=== PATIENT | male | born 1930 | race Caucasian/White ===

== ENCOUNTER 2016-07-17 08:56 | Inpatient (IN) | payer MEDICARE, BC ==
[~2016-07-17 08:56] MED LIST: DULC10SU2 PR; FAMC500T10 PO; LISI-542 PO; MILKSUS PO; MINO100T PO; POLYOPD OS; PRED10TA PO; PROS5TAB PO; RAPA8CAP PO; REGL5TAB2 PO; TYLE325T5 PO; VITMTA PO
[2016-07-17] MEDS: FINASTERIDE 5 MG TAB PO SCH (09:00)
[2016-07-17] MEDS: SENOKOT S TAB PO SCH ×2 (09:00→20:02)
[2016-07-17 09:37] LABS: BASO # 0.1 K/mm3 (0.0-0.2); EOS # 0.4 K/mm3 (0.0-0.50); EOS % 5.1 % (0.0-3.0); LARGE UNSTAINED CELL # 0.5 K/mm3 (0.0-0.4); LARGE UNSTAINED CELL % 5.6 % (0.0-4.0); LYMPH # 1.4 K/mm3 (1.5-4.5); LYMPH % 17.1 % (24.0-44.0); MEAN CORPUSCULAR HEMOGLOBIN 30.6 pg (27.0-33.0); MEAN CORPUSCULAR HGB CONC 33.2 g/dl (32.0-36.5); MEAN CORPUSCULAR VOLUME 92.2 fl (80.0-96.0); MONO # 0.8 K/mm3 (0.0-0.8); MONO % 10.1 % (0.0-5.0); PLATELET COUNT, AUTOMATED 269 k/mm3 (150-450); RED CELL DISTRIBUTION WIDTH 13.6 % (11.5-14.5); WHITE BLOOD COUNT 8.2 K/mm3 (4.0-10.0)
[2016-07-17 09:42] LABS: INR 1.09
[2016-07-17 09:43] LABS: ANION GAP 7 MEQ/L (8-16); BLOOD UREA NITROGEN 14 MG/DL (7-18); CALCIUM LEVEL 8.3 MG/DL (8.8-10.2); CARBON DIOXIDE LEVEL 30 MEQ/L (21-32); CHLORIDE LEVEL 105 MEQ/L (98-107); CREATININE FOR GFR 1.03 MG/DL (0.70-1.30); GLOMERULAR FILTRATION RATE > 60.0 (>35); GLUCOSE, FASTING 84 MG/DL (83-110); POTASSIUM SERUM 3.6 MEQ/L (3.5-5.1); SODIUM LEVEL 142 MEQ/L (136-145)
[2016-07-17] MEDS ORDERED: MORPHINE 4 MG/ML 1ML SYRINGE As Ordered ONE ×3 (09:50→11:34)
[2016-07-17] MEDS ORDERED: ONDANSETRON 4MG/2ML VIAL (J2405) As Ordered ONE (09:50)
--- NOTE | 2016-07-17 10:05 | REP ---
Chest one-view HISTORY: Infarction Comparison: 09/13 16 There is poor inspiratory effort. The lungs are clear. The heart is normal in size. The pulmonary vasculature is normal in appearance. Impression: No acute disease. Signed by Dc Enriquez MD 07/17/2016 09:58 A
--- NOTE | 2016-07-17 10:14 | REP ---
CT HEAD WITHOUT CONTRAST: HISTORY: Infarction. An acute intraparenchymal hematoma is present in the right temporal lobe and basal ganglia. The hematoma measures 5 cm in transverse x 3.7 cm in AP dimensions. A small amount of surrounding edema is present. There is mass effect with partial effacement of the overlying cortical sulci and body of the right lateral and third ventricles with minimal midline shift to the left. A small amount of intraventricular and subarachnoid hemorrhage are present. Areas of decreased attenuation are present in the periventricular white matter. This represents small vessel ischemic disease. The ventricular system and cortical sulci are dilated consistent with moderate volume loss. There is no extracerebral collection. The visualized sinuses are clear. IMPRESSION: 1. There is an acute intraparenchymal hematoma in the right temporal lobe and basal ganglia with mass effect and minimal midline shift to the left. 2. Small amount of intraventricular and subarachnoid hemorrhage. 3. Small vessel ischemic disease. 4. Moderate volume loss. The results were discussed with Dr. Harvey at 9:45 a.m. this date. Signed by Dc Enriquez MD 07/17/2016 10:16 A
[2016-07-17] MEDS ORDERED: LORazepam 1 MG TAB PO PRN (10:15)
[2016-07-17] MEDS ORDERED: FLEET ENEMA PR PRN (10:15)
[2016-07-17] MEDS ORDERED: ACETAMINOPHEN TAB 650MG DOSE (2X325MG) PO PRN (10:15)
[2016-07-17] MEDS ORDERED: MORPHINE 10MG/0.5ML ORAL CONCENTRATE SOLUTION U/D SL PRN (10:15)
[2016-07-17] MEDS ORDERED: SCOPOLAMINE 1.5 MG TRANSDERMAL TD PRN (10:15)
[2016-07-17] MEDS ORDERED: BISACODYL 10 MG SUPP PR PRN (10:15)
[2016-07-17] MEDS ORDERED: FLEEENE4 PR (10:19)
[2016-07-17] MEDS ORDERED: OMEP20CA3 PO (10:19)
[2016-07-17] MEDS ORDERED: POLY0.05 OS (10:19)
[2016-07-17] MEDS ORDERED: CETACRE4 TOP (10:19)
[2016-07-17] MEDS ORDERED: VALA500T PO (10:19)
[2016-07-17] MEDS ORDERED: PRED10TA PO (10:19)
[2016-07-17] MEDS ORDERED: ACET-654 PO (10:19)
[2016-07-17] MEDS ORDERED: MINO100C PO (10:19)
[2016-07-17] MEDS ORDERED: HYDR10T PO (10:19)
[2016-07-17] MEDS ORDERED: COLA100C PO (10:19)
--- NOTE | 2016-07-17 11:47 | EDDOCDS ---
Physician Documentation [facility] Name: Del Falcon Age: 86 yrs Sex: Male : 1930 Arrival Date: 07/17/2016 Time: 08:56 Bed 14 Private MD: Shaunna Santo E Disposition: 07/17/16 10:10 Hospitalization ordered by Abbey Juan for Inpatient Admission. Preliminary diagnosis is Intracerebral (nontraumatic) hemorrhage of - not . - Bed requested for 5 [place]. - Status is Inpatient Admission. hs1 - Condition is Stable. - Problem is new. - Symptoms are unchanged. Historical: - Home Meds: 1. minocycline miscellaneous 2. minocycline 100 mg Oral tab 1 tab daily 3. Cetaphil Moisturizing topical lotn twice a day 4. Atarax 10 mg Oral tab 10 mg four times a day 5. Prilosec 20 mg Oral cpDR 1 cap once daily 6. Rapaflo 8 mg oral cap 1 cap 7. finasteride 5 mg oral tab 1 tab once daily - PMHx: enlarged prostate; Hypertension; auto immune disease; Dementia; - PSHx: Cholecystectomy; Appendectomy; left knee operation; - Social history: Smoking status: unknown if patient ever smoked tobacco. No barriers to communication noted, Speaks appropriately for age. - Family history: Not pertinent. - : The pt / caregiver states he / she is not on anticoagulants. Home medication list is obtained from the facility SEP. - Exposure Risk Screening:: None identified. Vital Signs: 07/17 09:22 BP 245 / 162 (auto/); hs1 09:22 Pulse 60 MON; Pulse Ox 97% ; hs1 MDM: 09:02 ECG WITH READING ER PHYS+CARDIAG ordered. EDMS 09:04 Corporate Strategist/Pulse Ox/q 15 min VS ordered. sd1 09:04 Accucheck ordered. sd1 09:04 IV Saline Lock ordered. sd1 09:04 Rhythm Strip to chart ordered. sd1 09:04 Basic Metabolic Profile Ordered. EDMS 09:04 CBC with Diff Ordered. EDMS 09:04 Partial Thromboplastin Time Ordered. EDMS 09:04 Prothrombin Time Profile\E\INR Ordered. EDMS 09:04 Type & Screen Ordered. EDMS 09:05 CT Head Without Contrast Ordered. EDMS 09:05 Chest, 1 View Ordered. EDMS 09:42 morphine 4 mg IVP every 15 minutes; Document pain score/vitals after each dose (Hold if sd1 SBP < 90mmHg) x2 ordered. 09:42 Ondansetron 4 mg IVP once ordered. sd1 09:44 BED REQUEST+ADM ordered. EDMS 10:14 Admission / Observation Status ordered. EDMS 10:17 PUREED DIET ordered. EDMS 10:37 Financial registration complete. mm15 10:42 [facility] Payment Agreement was scanned into [employer] and attached to record. mm15 11:33 morphine 4 mg IVP once ordered. hs1 Administered Medications: 09:58 Drug: morphine 4 mg [morphine 4 mg/mL intravenous cartridge (1 mL)] Route: IVP; Site: hs1 right antecubital; 09:58 Drug: Ondansetron 4 mg [ondansetron HCl 2 mg/mL intravenous solution (2 mL)] Route: hs1 IVP; Site: right antecubital; 10:40 Drug: morphine 4 mg [morphine 4 mg/mL intravenous cartridge (1 mL)] Route: IVP; Site: hs1 right antecubital; 11:44 Drug: morphine 4 mg [morphine 4 mg/mL intravenous cartridge (1 mL)] Route: IVP; Site: hs1 right antecubital; Signatures: Dispatcher [employer] EDElisha Saldaña MD MD sd1 Sheba Baird, Data Typist Unit lbd Yadira Griggs RN RN hs1 Jimmie Cooper mm15 The chart was reviewed and I authenticate all verbal orders and agree with the evaluation and treatment provided.Attachments: 10:42 [facility] Payment Agreement mm15 MTDD
--- NOTE | 2016-07-17 11:48 | EDDOCDS ---
Nurse's Notes [facility] Name: Del Falcon Age: 86 yrs Sex: Male : 1930 Arrival Date: 07/17/2016 Time: 08:56 Bed 14 Private MD: Shaunna Santo E Diagnosis: Intracerebral (nontraumatic) hemorrhage of -not Presentation: 07/17 08:59 Presenting complaint: EMS states: 7pm last known well. Pt was still sleeping when staff hs1 checked on him at 630 am. Family came to visit at that time and alerted staff members of left sided weakness. EMS report full left sided paralysis cant feel or move left side. Right side functioning. IV R AC 18 gauge. FS is 130 mg/dL. The last date and time the patient was known to be well was was at 19:00 on July 16, 2016. An acute neurological deficit is present. The charge nurse has been notified. The patient has been moved to a treatment area. The patients blood glucose was checked before arriving to the hospital and was found to be normal. Adult Sepsis Screening: Patient has new or worsening altered mentation (1 point). Patient's respiratory rate is less than 22. Systolic blood pressure is greater than 100. Patient has a qSOFA score of 0- Negative Sepsis Screen. Suicide/Homicide risk assessment- the patient denies having any suicidal and/or homicidal ideations and does not present with any other emotional, behavioral or mental health complaints. Status: Patient is not a human service coordinator or dependent. Transition of care: patient was not received from another setting of care. 08:59 Acuity: JASMYN Level 2 hs1 08:59 Method Of Arrival: Ambulance hs1 Triage Assessment: 09:22 The onset of the patients symptoms was at an unknown time. General: Appears in no hs1 apparent distress, Behavior is cooperative. Pain: Denies pain. Neurological: Level of Consciousness is awake, Oriented to Battery Container Finishing Hand are weak on left Paralysis in left Reports unable to communicate at present. Pt does speak and is cordial with family members and staff. . Respiratory: Airway is patent Respiratory effort is even, unlabored. Derm: pock yang and itching noted to skin. Historical: - Home Meds: 1. minocycline miscellaneous 2. minocycline 100 mg Oral tab 1 tab daily 3. Cetaphil Moisturizing topical lotn twice a day 4. Atarax 10 mg Oral tab 10 mg four times a day 5. Prilosec 20 mg Oral cpDR 1 cap once daily 6. Rapaflo 8 mg oral cap 1 cap 7. finasteride 5 mg oral tab 1 tab once daily - PMHx: enlarged prostate; Hypertension; auto immune disease; Dementia; - PSHx: Cholecystectomy; Appendectomy; left knee operation; - Social history: Smoking status: unknown if patient ever smoked tobacco. No barriers to communication noted, Speaks appropriately for age. - Family history: Not pertinent. - : The pt / caregiver states he / she is not on anticoagulants. Home medication list is obtained from the facility SEP. - Exposure Risk Screening:: None identified. Screenin:31 Screening information is obtained from prior medical records. Fall risk: At risk due to hs1 age, gait disturbance, The following interventions are performed due to a positive Fall Risk Screen: Fall Risk is added to Special Handling on the patient Summary Screen. A Fall Risk Bracelet was applied to the patient. Side Rails are placed in the up position. A Call Zaragoza is given with instruction to call for help when getting out of bed. Assistance ADL's: Requires assistance with bathing, assistance is provided by residence staff. Abuse/DV Screen: The patient / caregiver reports he/she is: not in a situation that causes fear, pain or injury. Nutritional screening: On. Advance Directives: There is an active DNR order and the pt has a copy here at this time. home support is adequate. Assessment: 09:40 General: Appears in no apparent distress, Behavior is quiet, Family at bedside at hs1 present aware of plan of care for pt to have CT scan. No needs at this time per family. . 09:44 General: Pt is resting at present on way to CT scan. Respirations even and unlabored no hs1 other needs made known by family. . 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 Pt resting and appears quiet. Pt stating headache at times morphine administered per order. . 10:40 General: Pt has periods of restlessness per family at present and morphine administered hs1 for pain management. Pt respirations unlabored. Pt does have cough noted and strains when coughing and then returns to quiet resting periods. Family very attentive. . 11:32 Reassessment: Patient appears in no apparent distress at this time. patient is resting hs1 with family present. No needs noted. . 11:44 Adult Sepsis Screening: Accepted Exclusions- Patient is Comfort Measures Only. General: hs1 Appears in no apparent distress, Pt resting on stretcher with family present. Family very attentive. No needs noted at this time. Pt being administered medication prior to transfer to floor. . Vital Signs: 09:22 BP 245 / 162 (auto/); hs1 09:22 Pulse 60 MON; Pulse Ox 97% ; hs1 Vitals: 09:22 Glucose Measurement D-stick done by EMS. Log In Time N/A - ambulance arrival. hs1 ED Course: 08:58 Patient visited by Sheba Baird, Digital Content Specialist. lbd 08:58 Shaunna Santo is Private Physician. lbd 08:58 Patient moved to Waiting lbd 08:58 Patient moved to 14 lbd 09:02 Triage Initiated hs1 09:03 Elisha Bishop MD is Attending Physician. sd1 09:03 Patient visited by Elisha Bishop MD. sd1 09:08 EKG done. (by ED staff). Reviewed by Elisha Bishop MD. jml1 09:09 Patient visited by Paolo Forman. jml1 09:18 Basic Metabolic Profile Sent. hs1 09:18 CBC with Diff Sent. hs1 09:18 Partial Thromboplastin Time Sent. hs1 09:19 Prothrombin Time Profile\E\INR Sent. hs1 09:19 Type & Screen Sent. hs1 09:49 Patient visited by Yadira Griggs RN. hs1 10:10 Abbey Juan is Hospitalizing Provider. sd1 10:27 Chest, 1 View Returned. EDMS 10:27 CT Head Without Contrast Returned. EDMS 10:42 [facility] Payment Agreement was scanned into [employer] and attached to record. mm15 11:45 The patient / caregiver is instructed regarding the plan of care and ED course. hs1 11:45 Maintain field IV. Gauge & site: 18 gauge in right AC. hs1 11:45 No procedures done that require assistance. hs1 Administered Medications: 09:58 Drug: morphine 4 mg [morphine 4 mg/mL intravenous cartridge (1 mL)] Route: IVP; Site: hs1 right antecubital; 09:58 Drug: Ondansetron 4 mg [ondansetron HCl 2 mg/mL intravenous solution (2 mL)] Route: hs1 IVP; Site: right antecubital; 10:40 Drug: morphine 4 mg [morphine 4 mg/mL intravenous cartridge (1 mL)] Route: IVP; Site: [facility] right antecubital; 11:44 Drug: morphine 4 mg [morphine 4 mg/mL intravenous cartridge (1 mL)] Route: IVP; Site: [facility] right antecubital; Order Results: Lab Order: Basic Metabolic Profile; SPEC'M 07/17/16 09:16 Test: GLUCOSE, FASTING; Value: 84; Range: 83-110; Units: MG/DL; Status: F Test: BLOOD UREA NITROGEN; Value: 14; Range: 7-18; Units: MG/DL; Status: F Test: CREATININE FOR GFR; Value: 1.03; Range: 0.70-1.30; Units: MG/DL; Status: F Test: GLOMERULAR FILTRATION RATE; Value: > 60.0; Range: >35; Status: F Test: SODIUM LEVEL; Value: 142; Range: 136-145; Units: MEQ/L; Status: F Test: POTASSIUM SERUM; Value: 3.6; Range: 3.5-5.1; Units: MEQ/L; Status: F Test: CHLORIDE LEVEL; Value: 105; Range: 98-107; Units: MEQ/L; Status: F Test: CARBON DIOXIDE LEVEL; Value: 30; Range: 21-32; Units: MEQ/L; Status: F Test: ANION GAP; Value: 7; Range: 8-16; Abnormal: Below low normal; Units: MEQ/L; Status: F Test: CALCIUM LEVEL; Value: 8.3; Range: 8.8-10.2; Abnormal: Below low normal; Units: MG/DL; Status: F Test Note: ; Units are mL/min/1.73 m2 Chronic Kidney Disease Staging per NKF: Stage I & II GFR >=60 Normal to Mildly Decreased Stage III GFR 30-59 Moderately Decreased Stage IV GFR 15-29 Severely Decreased Stage V GFR <15 Very Little GFR Left ESRD GFR <15 on CARPET INSPECTOR FINISHED Lab Order: CBC with Diff; SPEC'M 07/17/16 09:16 Test: WHITE BLOOD COUNT; Value: 8.2; Range: 4.0-10.0; Units: K/mm3; Status: F Test: RED BLOOD COUNT; Value: 4.36; Range: 4.30-6.10; Units: M/mm3; Status: F Test: HEMOGLOBIN; Value: 13.3; Range: 14.0-18.0; Abnormal: Below low normal; Units: g/dl; Status: F Test: HEMATOCRIT; Value: 40.2; Range: 42.0-52.0; Abnormal: Below low normal; Units: %; Status: F Test: MEAN CORPUSCULAR VOLUME; Value: 92.2; Range: 80.0-96.0; Units: fl; Status: F Test: MEAN CORPUSCULAR HEMOGLOBIN; Value: 30.6; Range: 27.0-33.0; Units: pg; Status: F Test: MEAN CORPUSCULAR HGB CONC; Value: 33.2; Range: 32.0-36.5; Units: g/dl; Status: F Test: RED CELL DISTRIBUTION WIDTH; Value: 13.6; Range: 11.5-14.5; Units: %; Status: F Test: PLATELET COUNT, AUTOMATED; Value: 269; Range: 150-450; Units: k/mm3; Status: F Test: NEUTROPHILS %; Value: 61.0; Range: 36.0-66.0; Units: %; Status: F Test: LYMPH %; Value: 17.1; Range: 24.0-44.0; Abnormal: Below low normal; Units: %; Status: F Test: MONO %; Value: 10.1; Range: 0.0-5.0; Abnormal: Above high normal; Units: %; Status: F Test: EOS %; Value: 5.1; Range: 0.0-3.0; Abnormal: Above high normal; Units: %; Status: F Test: BASO %; Value: 1.0; Range: 0.0-1.0; Units: %; Status: F Test: LARGE UNSTAINED CELL %; Value: 5.6; Range: 0.0-4.0; Abnormal: Above high normal; Units: %; Status: F Test: NEUTROPHILS #; Value: 5.0; Range: 1.8-7.7; Units: K/mm3; Status: F Test: LYMPH #; Value: 1.4; Range: 1.5-4.5; Abnormal: Below low normal; Units: K/mm3; Status: F Test: MONO #; Value: 0.8; Range: 0.0-0.8; Units: K/mm3; Status: F Test: EOS #; Value: 0.4; Range: 0.0-0.50; Units: K/mm3; Status: F Test: BASO #; Value: 0.1; Range: 0.0-0.2; Units: K/mm3; Status: F Test: LARGE UNSTAINED CELL #; Value: 0.5; Range: 0.0-0.4; Abnormal: Above high normal; Units: K/mm3; Status: F Lab Order: Partial Thromboplastin Time; [facility] 07/17/16 09:16 Test: PARTIAL THROMBOPLASTIN TIME; Value: 30.6; Range: 26.6-37.1; Units: SECONDS; Status: F Lab Order: Prothrombin Time Profile\E\INR; [facility] 07/17/16 09:16 Test: PROTHROMBIN TIME; Value: 14.2; Range: 12.3-14.5; Units: SECONDS; Status: F Test: INR; Value: 1.09; Status: F Test Note: ; THERAPUTIC HUMAN INR VALUES INDICATIONS NORMAL RANGES PROPHYLAXIS/TREATMENT OF: VENOUS THROMBOSIS 2.0-3.0 PULMONARY EMBOLISM 2.0-3.0 PREVENTION OF SYSTEMIC EMBOLISM FROM: TISSUE HEART VALVES 2.0-3.0 ACUTE MYOCARDIAL INFARCTION 2.0-3.0 VALVULAR HEART DISEASE 2.0-3.0 ATRIAL FIBRILLATION 2.0-3.0 MECHANICAL VALVES(HIGH RISK) 2.5-3.5 RECURRENT MYOCARDIAL INFARCTION 2.5-3.5 Lab Order: Type & Screen; [facility] 09:16 Test: BLOOD TYPE; Value: O POS; Status: F Test: AB SCREEN (INDIRECT NABOR)GEL; Value: NEGATIVE; Status: F Radiology Order: CT Head Without Contrast Test: CT Head Without Contrast REASON FOR EXAMINATION: CVA >4.5hrs; CT HEAD WITHOUT CONTRAST:; ; HISTORY: Infarction.; ; An acute intraparenchymal hematoma is present in the right temporal lobe and; basal ganglia. The hematoma measures 5 cm in transverse x 3.7 cm in AP; dimensions. A small amount of surrounding edema is present. There is mass effect; with partial effacement of the overlying cortical sulci and body of the right; lateral and third ventricles with minimal midline shift to the left. A small; amount of intraventricular and subarachnoid hemorrhage are present. Areas of; decreased attenuation are present in the periventricular white matter. This; represents small vessel ischemic disease. The ventricular system and cortical; sulci are dilated consistent with moderate volume loss. There is no extracerebral; collection. The visualized sinuses are clear.; ; IMPRESSION:; ; 1. There is an acute intraparenchymal hematoma in the right temporal lobe; and basal ganglia with mass effect and minimal midline shift to the left.; ; 2. Small amount of intraventricular and subarachnoid hemorrhage.; ; 3. Small vessel ischemic disease.; ; 4. Moderate volume loss. The results were discussed with Dr. Harvey at 9:45; a.m. this date.; ; ; Signed by; Dc Enriquez MD 07/17/2016 10:16 A; Radiology Order: Chest, 1 View Test: Chest, 1 View REASON FOR EXAMINATION: CVA >4.5hrs; Chest one-view; ; HISTORY: Infarction; ; Comparison: 09/13 16; ; There is poor inspiratory effort. The lungs are clear. The heart is normal in; size. The pulmonary vasculature is normal in appearance.; ; Impression: No acute disease.; ; ; Signed by; Dc Enriquez MD 07/17/2016 09:58 A; Outcome: 10:10 Decision to Hospitalize by Provider. sd1 11:45 Discharge Assessment: Patient awake, alert and oriented x 3. No cognitive and/or hs1 functional deficits noted. Patient verbalized understanding of disposition instructions. patient administered narcotics - yes. Patient was admitted to the hospital or transferred to another facility. The following High Risk Discharge criteria are identified: None. Admitted to Med/Surg accompanied by nurse, accompanied by tech, family with patient, via stretcher, with chart. critical. CT Study completed. Property sent home with patient. 11:46 Patient left the ED. hs1 Signatures: Dispatcher [employer] EDMS Elisha Bishop MD MD sd1 Sheba Baird, Digital Content Specialist Unit lbd Nicole Stratton RN RN [facility] Yadira Griggs RN RN hs1 Paolo Forman jml1 Jimmie Cooper mm15 Corrections: (The following items were deleted from the chart) 09:21 08:59 Presenting complaint: mcp hs1 10:58 10:25 General: Pt is resting at present on way to CT scan. Respirations even and hs1 unlabored no other needs made known by family. . hs1 MTDD
[2016-07-17] MEDS: LORazepam 2 MG/ML VIAL (J2060) IV PRN ×4 (13:30→20:25)
[2016-07-17] MEDS: MORPHINE 2 MG/ML 1ML SYRINGE IV PRN ×4 (13:59→19:11)
--- NOTE | 2016-07-17 14:54 | HPE ---
DATE OF ADMISSION: 07/17/2016 PRIMARY CARE PROVIDER: Dr. Shaunna Santo CHIEF COMPLAINT: Left-sided hemiparesis. HISTORY OF PRESENT ILLNESS: This is an 86-year-old male patient with underlying medical history of hypertension, autoimmune skin disease, benign prostatic hypertrophy (BPH), dementia, from [facility], baseline ambulatory, able to dress himself, verbal, last observed normal at 7 p.m. last night. The patient was found this morning around 6:30 at [facility] facility, unable to move his left side with also aphasia, not able to get dressed. Subsequently, brought to the hospital. The patient is currently minimum verbal. Seems to report a headache with aphasia. Further history limited secondary to the patient's mental status. The patient seems to be not in significant distress. In the emergency room, the patient was found to have acute intraparenchymal hematoma in the right temporal lobe and basal ganglia with mass effect and minimal midline shift to the left. Subsequently, the situation discussed with the family. The family would like the patient to be comfort measures only. Subsequently, the hospitalist service paged for admission. ALLERGIES: No known drug allergies. PAST MEDICAL HISTORY: BPH. Hypertension. Autoimmune dermatitis. Dementia. PAST SURGICAL HISTORY: Cholecystectomy. Appendectomy. Left knee operation. 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 No illicit drug use. Lives at [facility] facility. FAMILY HISTORY: Noncontributory. REVIEW OF SYSTEMS: Unobtainable. HOME MEDICATIONS: - acetaminophen 650 mg by mouth every 4 hours as needed - acetaminophen 650 mg by mouth three times a day - Dulcolax rectal suppository 10 mg per rectal daily as needed - cetaphil cream topical twice a day - Colace 100 mg by mouth twice a day - finasteride 5 mg by mouth daily - hydroxyzine 10 mg by mouth four times a day - milk of magnesia 30 mL by mouth daily as needed - minocycline 100 mg by mouth daily - multivitamin one tablet by mouth daily - omeprazole 20 mg by mouth each evening - polyvinyl alcohol 1.4% intraocular drops four times a day - prednisone 10 mg by mouth daily - Rapaflo 8 mg by mouth each evening - Fleet enema daily per rectal as needed - valacyclovir 500 mg by mouth daily PHYSICAL EXAMINATION: VITAL SIGNS: Blood pressure 190/100, pulse 60, respiration 20, pulse oximetry 97% on room air. GENERAL: The patient arousable, in mild distress. HEENT: Left-sided facial droop. Minimum verbal. CARDIAC: Regular rate and rhythm. S1, S2. PULMONARY: Bilateral clear. ABDOMEN: Soft, positive bowel sounds. EXTREMITIES: No edema bilateral lower extremities. NEUROLOGIC: Left-sided facial droop, expressive aphasia. Left upper arm hemiparalysis. Left lower extremity slightly weaker than the right. CT scan shows 5 cm acute intracranial hemorrhage of right temporal lobe. Electrocardiogram (EKG) shows sinus bradycardia at 52 with premature ventricular complex. LABORATORY: WBC 8.2, hemoglobin and hematocrit 13.3/40.2, platelets 269. Chemistry: Sodium 142, potassium 3.6, chloride 105, bicarbonate 30, BUN 14, creatinine 1.03. INR 1.09. ASSESSMENT AND PLAN: This is an 86-year-old male patient with underlying medical history of dementia, hypertension, benign prostatic hypertrophy, autoimmune dermatitis, admitted with intracranial hemorrhage with left-sided hemiparesis. PROBLEMS: 1. Intracranial hemorrhage with left-sided hemiparesis. Discussed with the family, who would like the patient to be comfort measures only. Comfort feeding with pureed honey-thickened diet as the patient tolerates. Morphine, scopolamine, Ativan, bowel regimen, oxygen. No laboratories. No repeat tests. Hospice consulted. 2. Benign prostatic hypertrophy. Continue home medication if the patient tolerates. 3. Hypertension. The patient comfort measures only. Will not measure additional vital signs. 4. Deep venous thrombosis (DVT) prophylaxis. The patient with intracranial bleed and comfort measures only. Antiembolic stockings if the patient tolerates. DISPOSITION: The patient comfort measures only. Hospice consulted. Will monitor the patient.
[2016-07-17] MEDS: POLYVINYL ALCOHOL OPHTH SOLN 15 ML(LIQUITEARS) OS SCH ×2 (19:49→20:03)
--- NOTE | 2016-07-17 19:59 | ECGEPIP ---
Stationary ECG Study [facility] - ED Test Date: 2016-07-17 Pat Name: JOSE FRANCISCO LUJAN Department: Room: - Gender: M Dinkey Brakeman: drew : 1930 Requested By: Elisha Bishop Order Number: [id number] Reading MD: Elisha Bishop Measurements Intervals [place] Rate: 52 P: 22 WV: 189 QRS: -24 QRSD: 137 T: -13 QT: 489 QTc: 457 Interpretive Statements SINUS BRADYCARDIA WITH OCCASIONAL VENTRICULAR PREMATURE COMPLEXES BORDERLINE LEFT AXIS DEVIATION RIGHT BUNDLE BRANCH BLOCK PROLONGED QTC NSTTW ABNORMALITY Electronically Signed On 07-17-2016 19:59:13 EST by Elisha Bishop
[2016-07-17] MEDS: MORPHINE 4 MG/ML 1ML SYRINGE IV PRN (21:00)
[2016-07-18] MEDS: MORPHINE 4 MG/ML 1ML SYRINGE IV PRN ×10 (00:36→23:58)
[2016-07-18] MEDS ORDERED: GLYCOPYRROLATE INJ 0.2 MG/ML 2 ML VIAL IV ONE (08:00)
[2016-07-18] MEDS ORDERED: SCOPOLAMINE 1.5 MG TRANSDERMAL TD SCH (08:00)
[2016-07-18] MEDS: POLYVINYL ALCOHOL OPHTH SOLN 15 ML(LIQUITEARS) OS SCH ×4 (09:00→19:40)
[2016-07-18] MEDS: SENOKOT S TAB PO SCH ×2 (09:00→19:24)
[2016-07-18] MEDS: FINASTERIDE 5 MG TAB PO SCH (09:00)
--- NOTE | 2016-07-18 18:19 | IPN ---
DATE: 07/18/2016 SUBJECTIVE: Patient seen and examined. Currently not arousable but comfortable. Seems to be in no acute distress. Upper airway secretion sounds noticed with gurgling sounds. The patient is currently comfort measures only. PHYSICAL EXAMINATION: GENERAL: The patient is not arousable but comfortable in no acute distress. HEENT: Left-sided facial droop, nonverbal at this point. CARDIAC: Regular rate and rhythm. Normal S1, S2. PULMONARY: Bilateral upper airway gurgling sounds. ABDOMEN: Soft, positive bowel sounds. Nontender. EXTREMITIES: No edema bilateral lower extremities. Well perfused. NEUROLOGIC: Left-sided facial droop. Left-sided hemiparesis. ASSESSMENT AND PLAN: This is an 86-year-old male patient with underlying medical history of dementia, hypertension, benign prostatic hypertrophy (BPH), autoimmune dermatitis, admitted for intracranial hemorrhage with left-sided hemiparesis and cerebral edema under comfort measures only (REFUND CLERK). 1. Intracranial hemorrhage with left-sided hemiparesis and cerebral edema. The patient currently is REFUND CLERK. Comfort feeding as tolerated. Morphine intravenous (IV). Scopolamine, Ativan, bowel regimen, oxygen. No laboratories, no repeat tests. Hospice consulted. Glycopyrrolate given. Atropine as needed for terminal secretions. 2. Benign prostatic hypertrophy. The patient does not tolerate oral medications. Currently REFUND CLERK. 3. Hypertension. The patient is currently REFUND CLERK. Will not measure blood pressure. 4. Deep venous thrombosis (DVT) prophylaxis. Patient currently REFUND CLERK. Intracranial hemorrhage. Will not use pharmacological agents for DVT prophylaxis. DISPOSITION: COMFORT MEASURES ONLY. Hospice consulted, but patient will likely in the hospital.
[2016-07-19] MEDS: MORPHINE 4 MG/ML 1ML SYRINGE IV PRN ×2 (02:34→05:42)
[2016-07-19] MEDS ORDERED: EPIDURAL/PCA KEYS XX PRN (08:15)
[2016-07-19] MEDS: LORazepam 2 MG/ML VIAL (J2060) IV PRN ×2 (10:26→14:12)
[2016-07-19] MEDS: SENOKOT S TAB PO SCH ×2 (10:28→19:44)
[2016-07-19] MEDS: FINASTERIDE 5 MG TAB PO SCH (10:28)
[2016-07-19] MEDS: POLYVINYL ALCOHOL OPHTH SOLN 15 ML(LIQUITEARS) OS SCH ×4 (10:28→19:44)
[2016-07-19] MEDS: MORPHINE SULFATE CADD 100 MG in APPROPRIATE DILUENT 1 EA IV SCH ×2 (10:34→11:56)
--- NOTE | 2016-07-19 12:47 | EDDOCDS ---
Physician Documentation [facility] Name: Del Falcon Age: 86 yrs Sex: Male : 1930 Arrival Date: 07/17/2016 Time: 08:56 Bed 14 Private MD: Shaunna Santo E Disposition: 07/17/16 10:10 Hospitalization ordered by Abbey Juan for Inpatient Admission. Preliminary diagnosis is Intracerebral (nontraumatic) hemorrhage of - not . - Bed requested for 5 [place]. - Status is Inpatient Admission. hs1 - Condition is Stable. - Problem is new. - Symptoms are unchanged. Historical: - Home Meds: 1. minocycline miscellaneous 2. minocycline 100 mg Oral tab 1 tab daily 3. Cetaphil Moisturizing topical lotn twice a day 4. Atarax 10 mg Oral tab 10 mg four times a day 5. Prilosec 20 mg Oral cpDR 1 cap once daily 6. Rapaflo 8 mg oral cap 1 cap 7. finasteride 5 mg oral tab 1 tab once daily - PMHx: enlarged prostate; Hypertension; auto immune disease; Dementia; - PSHx: Cholecystectomy; Appendectomy; left knee operation; - Social history: Smoking status: unknown if patient ever smoked tobacco. No barriers to communication noted, Speaks appropriately for age. - Family history: Not pertinent. - : The pt / caregiver states he / she is not on anticoagulants. Home medication list is obtained from the facility SEP. - Exposure Risk Screening:: None identified. Vital Signs: 07/17 09:22 BP 245 / 162 (auto/); hs1 09:22 Pulse 60 MON; Pulse Ox 97% ; hs1 MDM: 09:02 ECG WITH READING ER PHYS+CARDIAG ordered. EDMS 09:04 Director Video/Pulse Ox/q 15 min VS ordered. sd1 09:04 Accucheck ordered. sd1 09:04 IV Saline Lock ordered. sd1 09:04 Rhythm Strip to chart ordered. sd1 09:04 Basic Metabolic Profile Ordered. EDMS 09:04 CBC with Diff Ordered. EDMS 09:04 Partial Thromboplastin Time Ordered. EDMS 09:04 Prothrombin Time Profile\E\INR Ordered. EDMS 09:04 Type & Screen Ordered. EDMS 09:05 CT Head Without Contrast Ordered. EDMS 09:05 Chest, 1 View Ordered. EDMS 09:42 morphine 4 mg IVP every 15 minutes; Document pain score/vitals after each dose (Hold if sd1 SBP < 90mmHg) x2 ordered. 09:42 Ondansetron 4 mg IVP once ordered. sd1 09:44 BED REQUEST+ADM ordered. EDMS 10:14 Admission / Observation Status ordered. EDMS 10:17 PUREED DIET ordered. EDMS 10:37 Financial registration complete. mm15 10:42 [facility] Payment Agreement was scanned into [employer] ([employer]) and attached to record. mm15 11:33 morphine 4 mg IVP once ordered. hs1 Administered Medications: 09:58 Drug: morphine 4 mg [morphine 4 mg/mL intravenous cartridge (1 mL)] Route: IVP; Site: hs1 right antecubital; 09:58 Drug: Ondansetron 4 mg [ondansetron HCl 2 mg/mL intravenous solution (2 mL)] Route: hs1 IVP; Site: right antecubital; 10:40 Drug: morphine 4 mg [morphine 4 mg/mL intravenous cartridge (1 mL)] Route: IVP; Site: hs1 right antecubital; 11:44 Drug: morphine 4 mg [morphine 4 mg/mL intravenous cartridge (1 mL)] Route: IVP; Site: hs1 right antecubital; Signatures: Dispatcher MedHost EDElisha Saldaña MD MD sd1 Sheba Baird, Sfdc Architect Unit lbd Yadira Griggs RN RN hs1 Jimmie Cooper mm15 The chart was reviewed and I authenticate all verbal orders and agree with the evaluation and treatment provided.Attachments: 10:42 [facility] Payment Agreement mm15 Chart Complete MTDD
--- NOTE | 2016-07-19 12:47 | EDDOCDS ---
Physician Documentation [facility] Name: Del Falcon Age: 86 yrs Sex: Male : 1930 Arrival Date: 07/17/2016 Time: 08:56 Bed 14 Private MD: Shaunna Santo E Disposition: 07/17/16 10:10 Hospitalization ordered by Abbey Juan for Inpatient Admission. Preliminary diagnosis is Intracerebral (nontraumatic) hemorrhage of - not . - Bed requested for 5 [place]. - Status is Inpatient Admission. hs1 - Condition is Stable. - Problem is new. - Symptoms are unchanged. Historical: - Home Meds: 1. minocycline miscellaneous 2. minocycline 100 mg Oral tab 1 tab daily 3. Cetaphil Moisturizing topical lotn twice a day 4. Atarax 10 mg Oral tab 10 mg four times a day 5. Prilosec 20 mg Oral cpDR 1 cap once daily 6. Rapaflo 8 mg oral cap 1 cap 7. finasteride 5 mg oral tab 1 tab once daily - PMHx: enlarged prostate; Hypertension; auto immune disease; Dementia; - PSHx: Cholecystectomy; Appendectomy; left knee operation; - Social history: Smoking status: unknown if patient ever smoked tobacco. No barriers to communication noted, Speaks appropriately for age. - Family history: Not pertinent. - : The pt / caregiver states he / she is not on anticoagulants. Home medication list is obtained from the facility SEP. - Exposure Risk Screening:: None identified. Vital Signs: 07/17 09:22 BP 245 / 162 (auto/); hs1 09:22 Pulse 60 MON; Pulse Ox 97% ; hs1 MDM: 09:02 ECG WITH READING ER PHYS+CARDIAG ordered. EDMS 09:04 Forestry Pilot/Pulse Ox/q 15 min VS ordered. sd1 09:04 Accucheck ordered. sd1 09:04 IV Saline Lock ordered. sd1 09:04 Rhythm Strip to chart ordered. sd1 09:04 Basic Metabolic Profile Ordered. EDMS 09:04 CBC with Diff Ordered. EDMS 09:04 Partial Thromboplastin Time Ordered. EDMS 09:04 Prothrombin Time Profile\E\INR Ordered. EDMS 09:04 Type & Screen Ordered. EDMS 09:05 CT Head Without Contrast Ordered. EDMS 09:05 Chest, 1 View Ordered. EDMS 09:42 morphine 4 mg IVP every 15 minutes; Document pain score/vitals after each dose (Hold if sd1 SBP < 90mmHg) x2 ordered. 09:42 Ondansetron 4 mg IVP once ordered. sd1 09:44 BED REQUEST+ADM ordered. EDMS 10:14 Admission / Observation Status ordered. EDMS 10:17 PUREED DIET ordered. EDMS 10:37 Financial registration complete. mm15 10:42 [facility] Payment Agreement was scanned into [employer] and attached to record. mm15 11:33 morphine 4 mg IVP once ordered. hs1 Administered Medications: 09:58 Drug: morphine 4 mg [morphine 4 mg/mL intravenous cartridge (1 mL)] Route: IVP; Site: hs1 right antecubital; 09:58 Drug: Ondansetron 4 mg [ondansetron HCl 2 mg/mL intravenous solution (2 mL)] Route: hs1 IVP; Site: right antecubital; 10:40 Drug: morphine 4 mg [morphine 4 mg/mL intravenous cartridge (1 mL)] Route: IVP; Site: hs1 right antecubital; 11:44 Drug: morphine 4 mg [morphine 4 mg/mL intravenous cartridge (1 mL)] Route: IVP; Site: hs1 right antecubital; Signatures: Dispatcher MedHost EDElisha Saldaña MD MD sd1 Sheba Baird, Livestock Speculator Unit lbd Yadira Griggs RN RN hs1 Jimmie Cooper mm15 The chart was reviewed and I authenticate all verbal orders and agree with the evaluation and treatment provided.Attachments: 10:42 [facility] Payment Agreement mm15 Chart Complete MTDD
--- NOTE | 2016-07-19 12:47 | EDDOCDS ---
Nurse's Notes [facility] Name: Del Falcon Age: 86 yrs Sex: Male : 1930 Arrival Date: 07/17/2016 Time: 08:56 Bed 14 Private MD: Shaunna Santo E Diagnosis: Intracerebral (nontraumatic) hemorrhage of -not Presentation: 07/17 08:59 Presenting complaint: EMS states: 7pm last known well. Pt was still sleeping when staff hs1 checked on him at 630 am. Family came to visit at that time and alerted staff members of left sided weakness. EMS report full left sided paralysis cant feel or move left side. Right side functioning. IV R AC 18 gauge. FS is 130 mg/dL. The last date and time the patient was known to be well was was at 19:00 on July 16, 2016. An acute neurological deficit is present. The charge nurse has been notified. The patient has been moved to a treatment area. The patients blood glucose was checked before arriving to the hospital and was found to be normal. Adult Sepsis Screening: Patient has new or worsening altered mentation (1 point). Patient's respiratory rate is less than 22. Systolic blood pressure is greater than 100. Patient has a qSOFA score of 0- Negative Sepsis Screen. Suicide/Homicide risk assessment- the patient denies having any suicidal and/or homicidal ideations and does not present with any other emotional, behavioral or mental health complaints. Status: Patient is not a community service representative or dependent. Transition of care: patient was not received from another setting of care. 08:59 Acuity: JASMYN Level 2 hs1 08:59 Method Of Arrival: Ambulance hs1 Triage Assessment: 09:22 The onset of the patients symptoms was at an unknown time. General: Appears in no hs1 apparent distress, Behavior is cooperative. Pain: Denies pain. Neurological: Level of Consciousness is awake, Oriented to Lead Systems Engineer are weak on left Paralysis in left Reports unable to communicate at present. Pt does speak and is cordial with family members and staff. . Respiratory: Airway is patent Respiratory effort is even, unlabored. Derm: pock yang and itching noted to skin. Historical: - Home Meds: 1. minocycline miscellaneous 2. minocycline 100 mg Oral tab 1 tab daily 3. Cetaphil Moisturizing topical lotn twice a day 4. Atarax 10 mg Oral tab 10 mg four times a day 5. Prilosec 20 mg Oral cpDR 1 cap once daily 6. Rapaflo 8 mg oral cap 1 cap 7. finasteride 5 mg oral tab 1 tab once daily - PMHx: enlarged prostate; Hypertension; auto immune disease; Dementia; - PSHx: Cholecystectomy; Appendectomy; left knee operation; - Social history: Smoking status: unknown if patient ever smoked tobacco. No barriers to communication noted, Speaks appropriately for age. - Family history: Not pertinent. - : The pt / caregiver states he / she is not on anticoagulants. Home medication list is obtained from the facility SEP. - Exposure Risk Screening:: None identified. Screenin:31 Screening information is obtained from prior medical records. Fall risk: At risk due to hs1 age, gait disturbance, The following interventions are performed due to a positive Fall Risk Screen: Fall Risk is added to Special Handling on the patient Summary Screen. A Fall Risk Bracelet was applied to the patient. Side Rails are placed in the up position. A Call Zaragoza is given with instruction to call for help when getting out of bed. Assistance ADL's: Requires assistance with bathing, assistance is provided by residence staff. Abuse/DV Screen: The patient / caregiver reports he/she is: not in a situation that causes fear, pain or injury. Nutritional screening: On. Advance Directives: There is an active DNR order and the pt has a copy here at this time. home support is adequate. Assessment: 09:40 General: Appears in no apparent distress, Behavior is quiet, Family at bedside at hs1 present aware of plan of care for pt to have CT scan. No needs at this time per family. . 09:44 General: Pt is resting at present on way to CT scan. Respirations even and unlabored no hs1 other needs made known by family. . 10:00 General: Pt family aware of preliminary CT scan results and decision to make pt MEAT CARVER at hs1 this time. Pt resting and appears quiet. Pt stating headache at times morphine administered per order. . 10:40 General: Pt has periods of restlessness per family at present and morphine administered hs1 for pain management. Pt respirations unlabored. Pt does have cough noted and strains when coughing and then returns to quiet resting periods. Family very attentive. . 11:32 Reassessment: Patient appears in no apparent distress at this time. patient is resting hs1 with family present. No needs noted. . 11:44 Adult Sepsis Screening: Accepted Exclusions- Patient is Comfort Measures Only. General: hs1 Appears in no apparent distress, Pt resting on stretcher with family present. Family very attentive. No needs noted at this time. Pt being administered medication prior to transfer to floor. . Vital Signs: 09:22 BP 245 / 162 (auto/); hs1 09:22 Pulse 60 MON; Pulse Ox 97% ; hs1 Vitals: 09:22 Glucose Measurement D-stick done by EMS. Log In Time N/A - ambulance arrival. hs1 ED Course: 08:58 Patient visited by Sheba Baird, Scrap Metal Processing Worker. lbd 08:58 Shaunna Santo is Private Physician. lbd 08:58 Patient moved to Waiting lbd 08:58 Patient moved to 14 lbd 09:02 Triage Initiated hs1 09:03 Elisha Bishop MD is Attending Physician. sd1 09:03 Patient visited by Elisha Bishop MD. sd1 09:08 EKG done. (by ED staff). Reviewed by Elisha Bishop MD. jml1 09:09 Patient visited by Paolo Forman. jml1 09:18 Basic Metabolic Profile Sent. hs1 09:18 CBC with Diff Sent. hs1 09:18 Partial Thromboplastin Time Sent. hs1 09:19 Prothrombin Time Profile\E\INR Sent. hs1 09:19 Type & Screen Sent. hs1 09:49 Patient visited by Yadira Griggs RN. hs1 10:10 Abbey Juan is Hospitalizing Provider. sd1 10:27 Chest, 1 View Returned. EDMS 10:27 CT Head Without Contrast Returned. EDMS 10:42 [facility] Payment Agreement was scanned into [employer] and attached to record. mm15 11:45 The patient / caregiver is instructed regarding the plan of care and ED course. hs1 11:45 Maintain field IV. Gauge & site: 18 gauge in right AC. hs1 11:45 No procedures done that require assistance. hs1 Administered Medications: 09:58 Drug: morphine 4 mg [morphine 4 mg/mL intravenous cartridge (1 mL)] Route: IVP; Site: hs1 right antecubital; 09:58 Drug: Ondansetron 4 mg [ondansetron HCl 2 mg/mL intravenous solution (2 mL)] Route: hs1 IVP; Site: right antecubital; 10:40 Drug: morphine 4 mg [morphine 4 mg/mL intravenous cartridge (1 mL)] Route: IVP; Site: [facility] right antecubital; 11:44 Drug: morphine 4 mg [morphine 4 mg/mL intravenous cartridge (1 mL)] Route: IVP; Site: [facility] right antecubital; Order Results: Lab Order: Basic Metabolic Profile; SPEC'M 07/17/16 09:16 Test: GLUCOSE, FASTING; Value: 84; Range: 83-110; Units: MG/DL; Status: F Test: BLOOD UREA NITROGEN; Value: 14; Range: 7-18; Units: MG/DL; Status: F Test: CREATININE FOR GFR; Value: 1.03; Range: 0.70-1.30; Units: MG/DL; Status: F Test: GLOMERULAR FILTRATION RATE; Value: > 60.0; Range: >35; Status: F Test: SODIUM LEVEL; Value: 142; Range: 136-145; Units: MEQ/L; Status: F Test: POTASSIUM SERUM; Value: 3.6; Range: 3.5-5.1; Units: MEQ/L; Status: F Test: CHLORIDE LEVEL; Value: 105; Range: 98-107; Units: MEQ/L; Status: F Test: CARBON DIOXIDE LEVEL; Value: 30; Range: 21-32; Units: MEQ/L; Status: F Test: ANION GAP; Value: 7; Range: 8-16; Abnormal: Below low normal; Units: MEQ/L; Status: F Test: CALCIUM LEVEL; Value: 8.3; Range: 8.8-10.2; Abnormal: Below low normal; Units: MG/DL; Status: F Test Note: ; Units are mL/min/1.73 m2 Chronic Kidney Disease Staging per NKF: Stage I & II GFR >=60 Normal to Mildly Decreased Stage III GFR 30-59 Moderately Decreased Stage IV GFR 15-29 Severely Decreased Stage V GFR <15 Very Little GFR Left ESRD GFR <15 on FLORIST'S DECORATOR Lab Order: CBC with Diff; SPEC'M 07/17/16 09:16 Test: WHITE BLOOD COUNT; Value: 8.2; Range: 4.0-10.0; Units: K/mm3; Status: F Test: RED BLOOD COUNT; Value: 4.36; Range: 4.30-6.10; Units: M/mm3; Status: F Test: HEMOGLOBIN; Value: 13.3; Range: 14.0-18.0; Abnormal: Below low normal; Units: g/dl; Status: F Test: HEMATOCRIT; Value: 40.2; Range: 42.0-52.0; Abnormal: Below low normal; Units: %; Status: F Test: MEAN CORPUSCULAR VOLUME; Value: 92.2; Range: 80.0-96.0; Units: fl; Status: F Test: MEAN CORPUSCULAR HEMOGLOBIN; Value: 30.6; Range: 27.0-33.0; Units: pg; Status: F Test: MEAN CORPUSCULAR HGB CONC; Value: 33.2; Range: 32.0-36.5; Units: g/dl; Status: F Test: RED CELL DISTRIBUTION WIDTH; Value: 13.6; Range: 11.5-14.5; Units: %; Status: F Test: PLATELET COUNT, AUTOMATED; Value: 269; Range: 150-450; Units: k/mm3; Status: F Test: NEUTROPHILS %; Value: 61.0; Range: 36.0-66.0; Units: %; Status: F Test: LYMPH %; Value: 17.1; Range: 24.0-44.0; Abnormal: Below low normal; Units: %; Status: F Test: MONO %; Value: 10.1; Range: 0.0-5.0; Abnormal: Above high normal; Units: %; Status: F Test: EOS %; Value: 5.1; Range: 0.0-3.0; Abnormal: Above high normal; Units: %; Status: F Test: BASO %; Value: 1.0; Range: 0.0-1.0; Units: %; Status: F Test: LARGE UNSTAINED CELL %; Value: 5.6; Range: 0.0-4.0; Abnormal: Above high normal; Units: %; Status: F Test: NEUTROPHILS #; Value: 5.0; Range: 1.8-7.7; Units: K/mm3; Status: F Test: LYMPH #; Value: 1.4; Range: 1.5-4.5; Abnormal: Below low normal; Units: K/mm3; Status: F Test: MONO #; Value: 0.8; Range: 0.0-0.8; Units: K/mm3; Status: F Test: EOS #; Value: 0.4; Range: 0.0-0.50; Units: K/mm3; Status: F Test: BASO #; Value: 0.1; Range: 0.0-0.2; Units: K/mm3; Status: F Test: LARGE UNSTAINED CELL #; Value: 0.5; Range: 0.0-0.4; Abnormal: Above high normal; Units: K/mm3; Status: F Lab Order: Partial Thromboplastin Time; [facility] 07/17/16 09:16 Test: PARTIAL THROMBOPLASTIN TIME; Value: 30.6; Range: 26.6-37.1; Units: SECONDS; Status: F Lab Order: Prothrombin Time Profile\E\INR; [facility] 07/17/16 09:16 Test: PROTHROMBIN TIME; Value: 14.2; Range: 12.3-14.5; Units: SECONDS; Status: F Test: INR; Value: 1.09; Status: F Test Note: ; THERAPUTIC HUMAN INR VALUES INDICATIONS NORMAL RANGES PROPHYLAXIS/TREATMENT OF: VENOUS THROMBOSIS 2.0-3.0 PULMONARY EMBOLISM 2.0-3.0 PREVENTION OF SYSTEMIC EMBOLISM FROM: TISSUE HEART VALVES 2.0-3.0 ACUTE MYOCARDIAL INFARCTION 2.0-3.0 VALVULAR HEART DISEASE 2.0-3.0 ATRIAL FIBRILLATION 2.0-3.0 MECHANICAL VALVES(HIGH RISK) 2.5-3.5 RECURRENT MYOCARDIAL INFARCTION 2.5-3.5 Lab Order: Type & Screen; [facility] 09:16 Test: BLOOD TYPE; Value: O POS; Status: F Test: AB SCREEN (INDIRECT NABOR)GEL; Value: NEGATIVE; Status: F Radiology Order: CT Head Without Contrast Test: CT Head Without Contrast REASON FOR EXAMINATION: CVA >4.5hrs; CT HEAD WITHOUT CONTRAST:; ; HISTORY: Infarction.; ; An acute intraparenchymal hematoma is present in the right temporal lobe and; basal ganglia. The hematoma measures 5 cm in transverse x 3.7 cm in AP; dimensions. A small amount of surrounding edema is present. There is mass effect; with partial effacement of the overlying cortical sulci and body of the right; lateral and third ventricles with minimal midline shift to the left. A small; amount of intraventricular and subarachnoid hemorrhage are present. Areas of; decreased attenuation are present in the periventricular white matter. This; represents small vessel ischemic disease. The ventricular system and cortical; sulci are dilated consistent with moderate volume loss. There is no extracerebral; collection. The visualized sinuses are clear.; ; IMPRESSION:; ; 1. There is an acute intraparenchymal hematoma in the right temporal lobe; and basal ganglia with mass effect and minimal midline shift to the left.; ; 2. Small amount of intraventricular and subarachnoid hemorrhage.; ; 3. Small vessel ischemic disease.; ; 4. Moderate volume loss. The results were discussed with Dr. Harvey at 9:45; a.m. this date.; ; ; Signed by; Dc Enriquez MD 07/17/2016 10:16 A; Radiology Order: Chest, 1 View Test: Chest, 1 View REASON FOR EXAMINATION: CVA >4.5hrs; Chest one-view; ; HISTORY: Infarction; ; Comparison: 09/13 16; ; There is poor inspiratory effort. The lungs are clear. The heart is normal in; size. The pulmonary vasculature is normal in appearance.; ; Impression: No acute disease.; ; ; Signed by; Dc Enriquez MD 07/17/2016 09:58 A; Outcome: 10:10 Decision to Hospitalize by Provider. sd1 11:45 Discharge Assessment: Patient awake, alert and oriented x 3. No cognitive and/or hs1 functional deficits noted. Patient verbalized understanding of disposition instructions. patient administered narcotics - yes. Patient was admitted to the hospital or transferred to another facility. The following High Risk Discharge criteria are identified: None. Admitted to Med/Surg accompanied by nurse, accompanied by tech, family with patient, via stretcher, with chart. critical. CT Study completed. Property sent home with patient. 11:46 Patient left the ED. hs1 Signatures: Dispatcher [employer] EDMS Elisha Bishop MD MD sd1 Sheba Baird, Scrap Metal Processing Worker Unit lbd Nicole Stratton RN RN [facility] Yadira Griggs RN RN hs1 Paolo Forman jml1 Jimmie Cooper mm15 Corrections: (The following items were deleted from the chart) 09:21 08:59 Presenting complaint: mcp hs1 10:58 10:25 General: Pt is resting at present on way to CT scan. Respirations even and hs1 unlabored no other needs made known by family. . hs1 Chart Complete MTDD
--- NOTE | 2016-07-19 19:20 | IPN ---
DATE: 07/19/2016 SUBJECTIVE: The patient is seen and examined. Currently comfort measures only. Comfortable in no acute distress. Not arousable. Upper airway secretion sounds noticed. Much improved from previously. Patient currently comfort measures only. PHYSICAL EXAMINATION: GENERAL: Patient not arousable. Comfortable, in no acute distress. HEENT: Left-sided facial droop. Nonverbal at this point. CARDIAC: Regular rate and rhythm. Mild tachycardia. PULMONARY: Upper airway sounds detected. ABDOMEN: Soft, nontender. Positive bowel sounds. EXTREMITIES: No edema bilateral lower extremities. ASSESSMENT AND PLAN: This is an 86-year-old male patient with underlying medical history of dementia, hypertension, benign prostatic hypertrophy (BPH), autoimmune dermatitis, from care home facility, admitted for intracranial hemorrhage, left-sided hemiparesis and cerebral edema under comfort measures only (VISITOR SERVICE ASSISTANT). 1. Intracranial hemorrhage with left-sided hemiparesis, cerebral edema. Patient currently VISITOR SERVICE ASSISTANT. Not tolerating any oral. As per family, the patient has intermittent distress, and morphine intravenous (IV) push has been lagging behind. Subsequently the patient changed to morphine drip, scopolamine, Ativan, bowel regimen, oxygen. No laboratories. Hospice has been consulted. Atropine as needed for terminal secretions. 2. Benign prostatic hypertrophy (BPH). Patient currently VISITOR SERVICE ASSISTANT. 3. Hypertension. Patient currently VISITOR SERVICE ASSISTANT with non-measured blood pressure. 4. Cerebral edema. Patient currently VISITOR SERVICE ASSISTANT. Treatment as above. 5. Deep venous thrombosis (DVT) prophylaxis. Patient currently VISITOR SERVICE ASSISTANT. DISPOSITION: Patient currently comfort measures only. Likely will during this hospital stay.
[2016-07-19] MEDS: ATROPINE SULFATE 1% OP SOLN 2 ML BTL SL PRN (20:42)
[2016-07-20] MEDS: ATROPINE SULFATE 1% OP SOLN 2 ML BTL SL PRN ×2 (01:37→09:00)
[2016-07-20] MEDS: MORPHINE SULFATE CADD 100 MG in APPROPRIATE DILUENT 1 EA IV SCH (05:21)
[2016-07-20] MEDS: FINASTERIDE 5 MG TAB PO SCH (07:50)
[2016-07-20] MEDS: SENOKOT S TAB PO SCH (07:51)
--- NOTE | 2016-07-20 07:59 | EDDOCDS ---
Physician Documentation [facility] Name: Del Falcon Age: 86 yrs Sex: Male : 1930 Arrival Date: 07/17/2016 Time: 08:56 Bed 14 Private MD: Shaunna Santo E Disposition: 07/17/16 10:10 Hospitalization ordered by Abbey Juan for Inpatient Admission. Preliminary diagnosis is Intracerebral (nontraumatic) hemorrhage of - not . - Bed requested for 5 [place]. - Status is Inpatient Admission. hs1 - Condition is Stable. - Problem is new. - Symptoms are unchanged. Historical: - Home Meds: 1. minocycline miscellaneous 2. minocycline 100 mg Oral tab 1 tab daily 3. Cetaphil Moisturizing topical lotn twice a day 4. Atarax 10 mg Oral tab 10 mg four times a day 5. Prilosec 20 mg Oral cpDR 1 cap once daily 6. Rapaflo 8 mg oral cap 1 cap 7. finasteride 5 mg oral tab 1 tab once daily - PMHx: enlarged prostate; Hypertension; auto immune disease; Dementia; - PSHx: Cholecystectomy; Appendectomy; left knee operation; - Social history: Smoking status: unknown if patient ever smoked tobacco. No barriers to communication noted, Speaks appropriately for age. - Family history: Not pertinent. - : The pt / caregiver states he / she is not on anticoagulants. Home medication list is obtained from the facility SEP. - Exposure Risk Screening:: None identified. Vital Signs: 07/17 09:22 BP 245 / 162 (auto/); hs1 09:22 Pulse 60 MON; Pulse Ox 97% ; hs1 MDM: 09:02 ECG WITH READING ER PHYS+CARDIAG ordered. EDMS 09:04 Live Hanger/Pulse Ox/q 15 min VS ordered. sd1 09:04 Accucheck ordered. sd1 09:04 IV Saline Lock ordered. sd1 09:04 Rhythm Strip to chart ordered. sd1 09:04 Basic Metabolic Profile Ordered. EDMS 09:04 CBC with Diff Ordered. EDMS 09:04 Partial Thromboplastin Time Ordered. EDMS 09:04 Prothrombin Time Profile\E\INR Ordered. EDMS 09:04 Type & Screen Ordered. EDMS 09:05 CT Head Without Contrast Ordered. EDMS 09:05 Chest, 1 View Ordered. EDMS 09:42 morphine 4 mg IVP every 15 minutes; Document pain score/vitals after each dose (Hold if sd1 SBP < 90mmHg) x2 ordered. 09:42 Ondansetron 4 mg IVP once ordered. sd1 09:44 BED REQUEST+ADM ordered. EDMS 10:14 Admission / Observation Status ordered. EDMS 10:17 PUREED DIET ordered. EDMS 10:37 Financial registration complete. mm15 10:42 [facility] Payment Agreement was scanned into [employer] and attached to record. mm15 11:33 morphine 4 mg IVP once ordered. hs1 Administered Medications: 09:58 Drug: morphine 4 mg [morphine 4 mg/mL intravenous cartridge (1 mL)] Route: IVP; Site: hs1 right antecubital; 09:58 Drug: Ondansetron 4 mg [ondansetron HCl 2 mg/mL intravenous solution (2 mL)] Route: hs1 IVP; Site: right antecubital; 10:40 Drug: morphine 4 mg [morphine 4 mg/mL intravenous cartridge (1 mL)] Route: IVP; Site: hs1 right antecubital; 11:44 Drug: morphine 4 mg [morphine 4 mg/mL intravenous cartridge (1 mL)] Route: IVP; Site: hs1 right antecubital; Signatures: Dispatcher MedHost EDElisha Saldaña MD MD sd1 Sheba Baird, Pot Reliner Unit lbd Yadira Griggs RN RN hs1 Jimmie Cooper mm15 The chart was reviewed and I authenticate all verbal orders and agree with the evaluation and treatment provided.Attachments: 10:42 [facility] Payment Agreement mm15 Chart Complete MTDD
--- NOTE | 2016-07-20 07:59 | EDDOCDS ---
Physician Documentation [facility] Name: Del Falcon Age: 86 yrs Sex: Male : 1930 Arrival Date: 07/17/2016 Time: 08:56 Bed 14 Private MD: Shaunna Santo E Disposition: 07/17/16 10:10 Hospitalization ordered by Abbey Juan for Inpatient Admission. Preliminary diagnosis is Intracerebral (nontraumatic) hemorrhage of - not . - Bed requested for 5 [place]. - Status is Inpatient Admission. hs1 - Condition is Stable. - Problem is new. - Symptoms are unchanged. Historical: - Home Meds: 1. minocycline miscellaneous 2. minocycline 100 mg Oral tab 1 tab daily 3. Cetaphil Moisturizing topical lotn twice a day 4. Atarax 10 mg Oral tab 10 mg four times a day 5. Prilosec 20 mg Oral cpDR 1 cap once daily 6. Rapaflo 8 mg oral cap 1 cap 7. finasteride 5 mg oral tab 1 tab once daily - PMHx: enlarged prostate; Hypertension; auto immune disease; Dementia; - PSHx: Cholecystectomy; Appendectomy; left knee operation; - Social history: Smoking status: unknown if patient ever smoked tobacco. No barriers to communication noted, Speaks appropriately for age. - Family history: Not pertinent. - : The pt / caregiver states he / she is not on anticoagulants. Home medication list is obtained from the facility SEP. - Exposure Risk Screening:: None identified. Vital Signs: 07/17 09:22 BP 245 / 162 (auto/); hs1 09:22 Pulse 60 MON; Pulse Ox 97% ; hs1 MDM: 09:02 ECG WITH READING ER PHYS+CARDIAG ordered. EDMS 09:04 Assistant Director Of Financial Aid/Pulse Ox/q 15 min VS ordered. sd1 09:04 Accucheck ordered. sd1 09:04 IV Saline Lock ordered. sd1 09:04 Rhythm Strip to chart ordered. sd1 09:04 Basic Metabolic Profile Ordered. EDMS 09:04 CBC with Diff Ordered. EDMS 09:04 Partial Thromboplastin Time Ordered. EDMS 09:04 Prothrombin Time Profile\E\INR Ordered. EDMS 09:04 Type & Screen Ordered. EDMS 09:05 CT Head Without Contrast Ordered. EDMS 09:05 Chest, 1 View Ordered. EDMS 09:42 morphine 4 mg IVP every 15 minutes; Document pain score/vitals after each dose (Hold if sd1 SBP < 90mmHg) x2 ordered. 09:42 Ondansetron 4 mg IVP once ordered. sd1 09:44 BED REQUEST+ADM ordered. EDMS 10:14 Admission / Observation Status ordered. EDMS 10:17 PUREED DIET ordered. EDMS 10:37 Financial registration complete. mm15 10:42 [facility] Payment Agreement was scanned into [employer] and attached to record. mm15 11:33 morphine 4 mg IVP once ordered. hs1 Administered Medications: 09:58 Drug: morphine 4 mg [morphine 4 mg/mL intravenous cartridge (1 mL)] Route: IVP; Site: hs1 right antecubital; 09:58 Drug: Ondansetron 4 mg [ondansetron HCl 2 mg/mL intravenous solution (2 mL)] Route: hs1 IVP; Site: right antecubital; 10:40 Drug: morphine 4 mg [morphine 4 mg/mL intravenous cartridge (1 mL)] Route: IVP; Site: hs1 right antecubital; 11:44 Drug: morphine 4 mg [morphine 4 mg/mL intravenous cartridge (1 mL)] Route: IVP; Site: hs1 right antecubital; Signatures: Dispatcher MedHost EDElisha Saldaña MD MD sd1 Sheba Baird, Refuse Laborer Unit lbd Yadira Griggs RN RN hs1 Jimmie Cooper mm15 The chart was reviewed and I authenticate all verbal orders and agree with the evaluation and treatment provided.Attachments: 10:42 [facility] Payment Agreement mm15 Chart Complete MTDD
--- NOTE | 2016-07-20 07:59 | EDDOCDS ---
Physician Documentation [facility] Name: Del Falcon Age: 86 yrs Sex: Male : 1930 Arrival Date: 07/17/2016 Time: 08:56 Bed 14 Private MD: Shaunna Santo E Disposition: 07/17/16 10:10 Hospitalization ordered by Abbey Juan for Inpatient Admission. Preliminary diagnosis is Intracerebral (nontraumatic) hemorrhage of - not . - Bed requested for 5 [place]. - Status is Inpatient Admission. hs1 - Condition is Stable. - Problem is new. - Symptoms are unchanged. Historical: - Home Meds: 1. minocycline miscellaneous 2. minocycline 100 mg Oral tab 1 tab daily 3. Cetaphil Moisturizing topical lotn twice a day 4. Atarax 10 mg Oral tab 10 mg four times a day 5. Prilosec 20 mg Oral cpDR 1 cap once daily 6. Rapaflo 8 mg oral cap 1 cap 7. finasteride 5 mg oral tab 1 tab once daily - PMHx: enlarged prostate; Hypertension; auto immune disease; Dementia; - PSHx: Cholecystectomy; Appendectomy; left knee operation; - Social history: Smoking status: unknown if patient ever smoked tobacco. No barriers to communication noted, Speaks appropriately for age. - Family history: Not pertinent. - : The pt / caregiver states he / she is not on anticoagulants. Home medication list is obtained from the facility SEP. - Exposure Risk Screening:: None identified. Vital Signs: 07/17 09:22 BP 245 / 162 (auto/); hs1 09:22 Pulse 60 MON; Pulse Ox 97% ; hs1 MDM: 09:02 ECG WITH READING ER PHYS+CARDIAG ordered. EDMS 09:04 Logistics Administrator/Pulse Ox/q 15 min VS ordered. sd1 09:04 Accucheck ordered. sd1 09:04 IV Saline Lock ordered. sd1 09:04 Rhythm Strip to chart ordered. sd1 09:04 Basic Metabolic Profile Ordered. EDMS 09:04 CBC with Diff Ordered. EDMS 09:04 Partial Thromboplastin Time Ordered. EDMS 09:04 Prothrombin Time Profile\E\INR Ordered. EDMS 09:04 Type & Screen Ordered. EDMS 09:05 CT Head Without Contrast Ordered. EDMS 09:05 Chest, 1 View Ordered. EDMS 09:42 morphine 4 mg IVP every 15 minutes; Document pain score/vitals after each dose (Hold if sd1 SBP < 90mmHg) x2 ordered. 09:42 Ondansetron 4 mg IVP once ordered. sd1 09:44 BED REQUEST+ADM ordered. EDMS 10:14 Admission / Observation Status ordered. EDMS 10:17 PUREED DIET ordered. EDMS 10:37 Financial registration complete. mm15 10:42 [facility] Payment Agreement was scanned into [employer] and attached to record. mm15 11:33 morphine 4 mg IVP once ordered. hs1 Administered Medications: 09:58 Drug: morphine 4 mg [morphine 4 mg/mL intravenous cartridge (1 mL)] Route: IVP; Site: hs1 right antecubital; 09:58 Drug: Ondansetron 4 mg [ondansetron HCl 2 mg/mL intravenous solution (2 mL)] Route: hs1 IVP; Site: right antecubital; 10:40 Drug: morphine 4 mg [morphine 4 mg/mL intravenous cartridge (1 mL)] Route: IVP; Site: hs1 right antecubital; 11:44 Drug: morphine 4 mg [morphine 4 mg/mL intravenous cartridge (1 mL)] Route: IVP; Site: hs1 right antecubital; Signatures: Dispatcher MedHost EDElisha Saldaña MD MD sd1 Sheba Baird, Booking Police Officer Unit lbd Yadira Griggs RN RN hs1 Jimmie Cooper mm15 The chart was reviewed and I authenticate all verbal orders and agree with the evaluation and treatment provided.Attachments: 10:42 [facility] Payment Agreement mm15 Chart Complete MTDD
--- NOTE | 2016-07-20 07:59 | EDDOCDS ---
Nurse's Notes [facility] Name: Del Falcon Age: 86 yrs Sex: Male : 1930 Arrival Date: 07/17/2016 Time: 08:56 Bed 14 Private MD: Shaunna Santo E Diagnosis: Intracerebral (nontraumatic) hemorrhage of -not Presentation: 07/17 08:59 Presenting complaint: EMS states: 7pm last known well. Pt was still sleeping when staff hs1 checked on him at 630 am. Family came to visit at that time and alerted staff members of left sided weakness. EMS report full left sided paralysis cant feel or move left side. Right side functioning. IV R AC 18 gauge. FS is 130 mg/dL. The last date and time the patient was known to be well was was at 19:00 on July 16, 2016. An acute neurological deficit is present. The charge nurse has been notified. The patient has been moved to a treatment area. The patients blood glucose was checked before arriving to the hospital and was found to be normal. Adult Sepsis Screening: Patient has new or worsening altered mentation (1 point). Patient's respiratory rate is less than 22. Systolic blood pressure is greater than 100. Patient has a qSOFA score of 0- Negative Sepsis Screen. Suicide/Homicide risk assessment- the patient denies having any suicidal and/or homicidal ideations and does not present with any other emotional, behavioral or mental health complaints. Status: Patient is not a septic tank service technician or dependent. Transition of care: patient was not received from another setting of care. 08:59 Acuity: JASMYN Level 2 hs1 08:59 Method Of Arrival: Ambulance hs1 Triage Assessment: 09:22 The onset of the patients symptoms was at an unknown time. General: Appears in no hs1 apparent distress, Behavior is cooperative. Pain: Denies pain. Neurological: Level of Consciousness is awake, Oriented to Diabetes Clinical Manager are weak on left Paralysis in left Reports unable to communicate at present. Pt does speak and is cordial with family members and staff. . Respiratory: Airway is patent Respiratory effort is even, unlabored. Derm: pock yang and itching noted to skin. Historical: - Home Meds: 1. minocycline miscellaneous 2. minocycline 100 mg Oral tab 1 tab daily 3. Cetaphil Moisturizing topical lotn twice a day 4. Atarax 10 mg Oral tab 10 mg four times a day 5. Prilosec 20 mg Oral cpDR 1 cap once daily 6. Rapaflo 8 mg oral cap 1 cap 7. finasteride 5 mg oral tab 1 tab once daily - PMHx: enlarged prostate; Hypertension; auto immune disease; Dementia; - PSHx: Cholecystectomy; Appendectomy; left knee operation; - Social history: Smoking status: unknown if patient ever smoked tobacco. No barriers to communication noted, Speaks appropriately for age. - Family history: Not pertinent. - : The pt / caregiver states he / she is not on anticoagulants. Home medication list is obtained from the facility SEP. - Exposure Risk Screening:: None identified. Screenin:31 Screening information is obtained from prior medical records. Fall risk: At risk due to hs1 age, gait disturbance, The following interventions are performed due to a positive Fall Risk Screen: Fall Risk is added to Special Handling on the patient Summary Screen. A Fall Risk Bracelet was applied to the patient. Side Rails are placed in the up position. A Call Zaragoza is given with instruction to call for help when getting out of bed. Assistance ADL's: Requires assistance with bathing, assistance is provided by residence staff. Abuse/DV Screen: The patient / caregiver reports he/she is: not in a situation that causes fear, pain or injury. Nutritional screening: On. Advance Directives: There is an active DNR order and the pt has a copy here at this time. home support is adequate. Assessment: 09:40 General: Appears in no apparent distress, Behavior is quiet, Family at bedside at hs1 present aware of plan of care for pt to have CT scan. No needs at this time per family. . 09:44 General: Pt is resting at present on way to CT scan. Respirations even and unlabored no hs1 other needs made known by family. . 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 Pt resting and appears quiet. Pt stating headache at times morphine administered per order. . 10:40 General: Pt has periods of restlessness per family at present and morphine administered hs1 for pain management. Pt respirations unlabored. Pt does have cough noted and strains when coughing and then returns to quiet resting periods. Family very attentive. . 11:32 Reassessment: Patient appears in no apparent distress at this time. patient is resting hs1 with family present. No needs noted. . 11:44 Adult Sepsis Screening: Accepted Exclusions- Patient is Comfort Measures Only. General: hs1 Appears in no apparent distress, Pt resting on stretcher with family present. Family very attentive. No needs noted at this time. Pt being administered medication prior to transfer to floor. . Vital Signs: 09:22 BP 245 / 162 (auto/); hs1 09:22 Pulse 60 MON; Pulse Ox 97% ; hs1 Vitals: 09:22 Glucose Measurement D-stick done by EMS. Log In Time N/A - ambulance arrival. hs1 ED Course: 08:58 Patient visited by Sheba Baird, Special Education Professional. lbd 08:58 Shaunna Santo is Private Physician. lbd 08:58 Patient moved to Waiting lbd 08:58 Patient moved to 14 lbd 09:02 Triage Initiated hs1 09:03 Elisha Bishop MD is Attending Physician. sd1 09:03 Patient visited by Elisha Bishop MD. sd1 09:08 EKG done. (by ED staff). Reviewed by Elisha Bishop MD. jml1 09:09 Patient visited by Paolo Forman. jml1 09:18 Basic Metabolic Profile Sent. hs1 09:18 CBC with Diff Sent. hs1 09:18 Partial Thromboplastin Time Sent. hs1 09:19 Prothrombin Time Profile\E\INR Sent. hs1 09:19 Type & Screen Sent. hs1 09:49 Patient visited by Yadira Griggs RN. hs1 10:10 Abbey Juan is Hospitalizing Provider. sd1 10:27 Chest, 1 View Returned. EDMS 10:27 CT Head Without Contrast Returned. EDMS 10:42 [facility] Payment Agreement was scanned into [employer] and attached to record. mm15 11:45 The patient / caregiver is instructed regarding the plan of care and ED course. hs1 11:45 Maintain field IV. Gauge & site: 18 gauge in right AC. hs1 11:45 No procedures done that require assistance. hs1 Administered Medications: 09:58 Drug: morphine 4 mg [morphine 4 mg/mL intravenous cartridge (1 mL)] Route: IVP; Site: hs1 right antecubital; 09:58 Drug: Ondansetron 4 mg [ondansetron HCl 2 mg/mL intravenous solution (2 mL)] Route: hs1 IVP; Site: right antecubital; 10:40 Drug: morphine 4 mg [morphine 4 mg/mL intravenous cartridge (1 mL)] Route: IVP; Site: [facility] right antecubital; 11:44 Drug: morphine 4 mg [morphine 4 mg/mL intravenous cartridge (1 mL)] Route: IVP; Site: [facility] right antecubital; Order Results: Lab Order: Basic Metabolic Profile; SPEC'M 07/17/16 09:16 Test: GLUCOSE, FASTING; Value: 84; Range: 83-110; Units: MG/DL; Status: F Test: BLOOD UREA NITROGEN; Value: 14; Range: 7-18; Units: MG/DL; Status: F Test: CREATININE FOR GFR; Value: 1.03; Range: 0.70-1.30; Units: MG/DL; Status: F Test: GLOMERULAR FILTRATION RATE; Value: > 60.0; Range: >35; Status: F Test: SODIUM LEVEL; Value: 142; Range: 136-145; Units: MEQ/L; Status: F Test: POTASSIUM SERUM; Value: 3.6; Range: 3.5-5.1; Units: MEQ/L; Status: F Test: CHLORIDE LEVEL; Value: 105; Range: 98-107; Units: MEQ/L; Status: F Test: CARBON DIOXIDE LEVEL; Value: 30; Range: 21-32; Units: MEQ/L; Status: F Test: ANION GAP; Value: 7; Range: 8-16; Abnormal: Below low normal; Units: MEQ/L; Status: F Test: CALCIUM LEVEL; Value: 8.3; Range: 8.8-10.2; Abnormal: Below low normal; Units: MG/DL; Status: F Test Note: ; Units are mL/min/1.73 m2 Chronic Kidney Disease Staging per NKF: Stage I & II GFR >=60 Normal to Mildly Decreased Stage III GFR 30-59 Moderately Decreased Stage IV GFR 15-29 Severely Decreased Stage V GFR <15 Very Little GFR Left ESRD GFR <15 on CRYSTALIZER Lab Order: CBC with Diff; SPEC'M 07/17/16 09:16 Test: WHITE BLOOD COUNT; Value: 8.2; Range: 4.0-10.0; Units: K/mm3; Status: F Test: RED BLOOD COUNT; Value: 4.36; Range: 4.30-6.10; Units: M/mm3; Status: F Test: HEMOGLOBIN; Value: 13.3; Range: 14.0-18.0; Abnormal: Below low normal; Units: g/dl; Status: F Test: HEMATOCRIT; Value: 40.2; Range: 42.0-52.0; Abnormal: Below low normal; Units: %; Status: F Test: MEAN CORPUSCULAR VOLUME; Value: 92.2; Range: 80.0-96.0; Units: fl; Status: F Test: MEAN CORPUSCULAR HEMOGLOBIN; Value: 30.6; Range: 27.0-33.0; Units: pg; Status: F Test: MEAN CORPUSCULAR HGB CONC; Value: 33.2; Range: 32.0-36.5; Units: g/dl; Status: F Test: RED CELL DISTRIBUTION WIDTH; Value: 13.6; Range: 11.5-14.5; Units: %; Status: F Test: PLATELET COUNT, AUTOMATED; Value: 269; Range: 150-450; Units: k/mm3; Status: F Test: NEUTROPHILS %; Value: 61.0; Range: 36.0-66.0; Units: %; Status: F Test: LYMPH %; Value: 17.1; Range: 24.0-44.0; Abnormal: Below low normal; Units: %; Status: F Test: MONO %; Value: 10.1; Range: 0.0-5.0; Abnormal: Above high normal; Units: %; Status: F Test: EOS %; Value: 5.1; Range: 0.0-3.0; Abnormal: Above high normal; Units: %; Status: F Test: BASO %; Value: 1.0; Range: 0.0-1.0; Units: %; Status: F Test: LARGE UNSTAINED CELL %; Value: 5.6; Range: 0.0-4.0; Abnormal: Above high normal; Units: %; Status: F Test: NEUTROPHILS #; Value: 5.0; Range: 1.8-7.7; Units: K/mm3; Status: F Test: LYMPH #; Value: 1.4; Range: 1.5-4.5; Abnormal: Below low normal; Units: K/mm3; Status: F Test: MONO #; Value: 0.8; Range: 0.0-0.8; Units: K/mm3; Status: F Test: EOS #; Value: 0.4; Range: 0.0-0.50; Units: K/mm3; Status: F Test: BASO #; Value: 0.1; Range: 0.0-0.2; Units: K/mm3; Status: F Test: LARGE UNSTAINED CELL #; Value: 0.5; Range: 0.0-0.4; Abnormal: Above high normal; Units: K/mm3; Status: F Lab Order: Partial Thromboplastin Time; [facility] 07/17/16 09:16 Test: PARTIAL THROMBOPLASTIN TIME; Value: 30.6; Range: 26.6-37.1; Units: SECONDS; Status: F Lab Order: Prothrombin Time Profile\E\INR; [facility] 07/17/16 09:16 Test: PROTHROMBIN TIME; Value: 14.2; Range: 12.3-14.5; Units: SECONDS; Status: F Test: INR; Value: 1.09; Status: F Test Note: ; THERAPUTIC HUMAN INR VALUES INDICATIONS NORMAL RANGES PROPHYLAXIS/TREATMENT OF: VENOUS THROMBOSIS 2.0-3.0 PULMONARY EMBOLISM 2.0-3.0 PREVENTION OF SYSTEMIC EMBOLISM FROM: TISSUE HEART VALVES 2.0-3.0 ACUTE MYOCARDIAL INFARCTION 2.0-3.0 VALVULAR HEART DISEASE 2.0-3.0 ATRIAL FIBRILLATION 2.0-3.0 MECHANICAL VALVES(HIGH RISK) 2.5-3.5 RECURRENT MYOCARDIAL INFARCTION 2.5-3.5 Lab Order: Type & Screen; [facility]07/17/16 09:16 Test: BLOOD TYPE; Value: O POS; Status: F Test: AB SCREEN (INDIRECT NABOR)GEL; Value: NEGATIVE; Status: F Radiology Order: CT Head Without Contrast Test: CT Head Without Contrast REASON FOR EXAMINATION: CVA >4.5hrs; CT HEAD WITHOUT CONTRAST:; ; HISTORY: Infarction.; ; An acute intraparenchymal hematoma is present in the right temporal lobe and; basal ganglia. The hematoma measures 5 cm in transverse x 3.7 cm in AP; dimensions. A small amount of surrounding edema is present. There is mass effect; with partial effacement of the overlying cortical sulci and body of the right; lateral and third ventricles with minimal midline shift to the left. A small; amount of intraventricular and subarachnoid hemorrhage are present. Areas of; decreased attenuation are present in the periventricular white matter. This; represents small vessel ischemic disease. The ventricular system and cortical; sulci are dilated consistent with moderate volume loss. There is no extracerebral; collection. The visualized sinuses are clear.; ; IMPRESSION:; ; 1. There is an acute intraparenchymal hematoma in the right temporal lobe; and basal ganglia with mass effect and minimal midline shift to the left.; ; 2. Small amount of intraventricular and subarachnoid hemorrhage.; ; 3. Small vessel ischemic disease.; ; 4. Moderate volume loss. The results were discussed with Dr. Harvey at 9:45; a.m. this date.; ; ; Signed by; Dc Enriquez MD 07/17/2016 10:16 A; Radiology Order: Chest, 1 View Test: Chest, 1 View REASON FOR EXAMINATION: CVA >4.5hrs; Chest one-view; ; HISTORY: Infarction; ; Comparison: 09/13 16; ; There is poor inspiratory effort. The lungs are clear. The heart is normal in; size. The pulmonary vasculature is normal in appearance.; ; Impression: No acute disease.; ; ; Signed by; Dc Enriquez MD 07/17/2016 09:58 A; Outcome: 10:10 Decision to Hospitalize by Provider. sd1 11:45 Discharge Assessment: Patient awake, alert and oriented x 3. No cognitive and/or hs1 functional deficits noted. Patient verbalized understanding of disposition instructions. patient administered narcotics - yes. Patient was admitted to the hospital or transferred to another facility. The following High Risk Discharge criteria are identified: None. Admitted to Med/Surg accompanied by nurse, accompanied by tech, family with patient, via stretcher, with chart. critical. CT Study completed. Property sent home with patient. 11:46 Patient left the ED. hs1 Signatures: Dispatcher [employer] EDMS Elisha Bishop MD MD sd1 Sheba Baird, Special Education Professional Unit lbd Nicole Stratton RN RN [facility] Yadira Griggs RN RN hs1 Paolo Forman jml1 Jimmie Cooper mm15 Corrections: (The following items were deleted from the chart) 09:21 08:59 Presenting complaint: mcp hs1 10:58 10:25 General: Pt is resting at present on way to CT scan. Respirations even and hs1 unlabored no other needs made known by family. . hs1 Chart Complete MTDD
--- NOTE | 2016-07-20 07:59 | EDDOCDS ---
Nurse's Notes [facility] Name: Del Falcon Age: 86 yrs Sex: Male : 1930 Arrival Date: 07/17/2016 Time: 08:56 Bed 14 Private MD: Shaunna Santo E Diagnosis: Intracerebral (nontraumatic) hemorrhage of -not Presentation: 07/17 08:59 Presenting complaint: EMS states: 7pm last known well. Pt was still sleeping when staff hs1 checked on him at 630 am. Family came to visit at that time and alerted staff members of left sided weakness. EMS report full left sided paralysis cant feel or move left side. Right side functioning. IV R AC 18 gauge. FS is 130 mg/dL. The last date and time the patient was known to be well was was at 19:00 on July 16, 2016. An acute neurological deficit is present. The charge nurse has been notified. The patient has been moved to a treatment area. The patients blood glucose was checked before arriving to the hospital and was found to be normal. Adult Sepsis Screening: Patient has new or worsening altered mentation (1 point). Patient's respiratory rate is less than 22. Systolic blood pressure is greater than 100. Patient has a qSOFA score of 0- Negative Sepsis Screen. Suicide/Homicide risk assessment- the patient denies having any suicidal and/or homicidal ideations and does not present with any other emotional, behavioral or mental health complaints. Status: Patient is not a service car driver or dependent. Transition of care: patient was not received from another setting of care. 08:59 Acuity: JASMYN Level 2 hs1 08:59 Method Of Arrival: Ambulance hs1 Triage Assessment: 09:22 The onset of the patients symptoms was at an unknown time. General: Appears in no hs1 apparent distress, Behavior is cooperative. Pain: Denies pain. Neurological: Level of Consciousness is awake, Oriented to Molding Fitter are weak on left Paralysis in left Reports unable to communicate at present. Pt does speak and is cordial with family members and staff. . Respiratory: Airway is patent Respiratory effort is even, unlabored. Derm: pock yang and itching noted to skin. Historical: - Home Meds: 1. minocycline miscellaneous 2. minocycline 100 mg Oral tab 1 tab daily 3. Cetaphil Moisturizing topical lotn twice a day 4. Atarax 10 mg Oral tab 10 mg four times a day 5. Prilosec 20 mg Oral cpDR 1 cap once daily 6. Rapaflo 8 mg oral cap 1 cap 7. finasteride 5 mg oral tab 1 tab once daily - PMHx: enlarged prostate; Hypertension; auto immune disease; Dementia; - PSHx: Cholecystectomy; Appendectomy; left knee operation; - Social history: Smoking status: unknown if patient ever smoked tobacco. No barriers to communication noted, Speaks appropriately for age. - Family history: Not pertinent. - : The pt / caregiver states he / she is not on anticoagulants. Home medication list is obtained from the facility SEP. - Exposure Risk Screening:: None identified. Screenin:31 Screening information is obtained from prior medical records. Fall risk: At risk due to hs1 age, gait disturbance, The following interventions are performed due to a positive Fall Risk Screen: Fall Risk is added to Special Handling on the patient Summary Screen. A Fall Risk Bracelet was applied to the patient. Side Rails are placed in the up position. A Call Zaragoza is given with instruction to call for help when getting out of bed. Assistance ADL's: Requires assistance with bathing, assistance is provided by residence staff. Abuse/DV Screen: The patient / caregiver reports he/she is: not in a situation that causes fear, pain or injury. Nutritional screening: On. Advance Directives: There is an active DNR order and the pt has a copy here at this time. home support is adequate. Assessment: 09:40 General: Appears in no apparent distress, Behavior is quiet, Family at bedside at hs1 present aware of plan of care for pt to have CT scan. No needs at this time per family. . 09:44 General: Pt is resting at present on way to CT scan. Respirations even and unlabored no hs1 other needs made known by family. . 10:00 General: Pt family aware of preliminary CT scan results and decision to make pt CIRCUIT JUDGE at hs1 this time. Pt resting and appears quiet. Pt stating headache at times morphine administered per order. . 10:40 General: Pt has periods of restlessness per family at present and morphine administered hs1 for pain management. Pt respirations unlabored. Pt does have cough noted and strains when coughing and then returns to quiet resting periods. Family very attentive. . 11:32 Reassessment: Patient appears in no apparent distress at this time. patient is resting hs1 with family present. No needs noted. . 11:44 Adult Sepsis Screening: Accepted Exclusions- Patient is Comfort Measures Only. General: hs1 Appears in no apparent distress, Pt resting on stretcher with family present. Family very attentive. No needs noted at this time. Pt being administered medication prior to transfer to floor. . Vital Signs: 09:22 BP 245 / 162 (auto/); hs1 09:22 Pulse 60 MON; Pulse Ox 97% ; hs1 Vitals: 09:22 Glucose Measurement D-stick done by EMS. Log In Time N/A - ambulance arrival. hs1 ED Course: 08:58 Patient visited by Sheba Baird, Leg Breaker. lbd 08:58 Shaunna Santo is Private Physician. lbd 08:58 Patient moved to Waiting lbd 08:58 Patient moved to 14 lbd 09:02 Triage Initiated hs1 09:03 Elisha Bishop MD is Attending Physician. sd1 09:03 Patient visited by Elisha Bsihop MD. sd1 09:08 EKG done. (by ED staff). Reviewed by Elisha Bishop MD. jml1 09:09 Patient visited by Paolo Forman. jml1 09:18 Basic Metabolic Profile Sent. hs1 09:18 CBC with Diff Sent. hs1 09:18 Partial Thromboplastin Time Sent. hs1 09:19 Prothrombin Time Profile\E\INR Sent. hs1 09:19 Type & Screen Sent. hs1 09:49 Patient visited by Yadira Griggs RN. hs1 10:10 Abbey Juan is Hospitalizing Provider. sd1 10:27 Chest, 1 View Returned. EDMS 10:27 CT Head Without Contrast Returned. EDMS 10:42 [facility] [place] was scanned into [employer] and attached to record. mm15 11:45 The patient / caregiver is instructed regarding the plan of care and ED course. hs1 11:45 Maintain field IV. Gauge & site: 18 gauge in right AC. hs1 11:45 No procedures done that require assistance. hs1 Administered Medications: 09:58 Drug: morphine 4 mg [morphine 4 mg/mL intravenous cartridge (1 mL)] Route: IVP; Site: hs1 right antecubital; 09:58 Drug: Ondansetron 4 mg [ondansetron HCl 2 mg/mL intravenous solution (2 mL)] Route: hs1 IVP; Site: right antecubital; 10:40 Drug: morphine 4 mg [morphine 4 mg/mL intravenous cartridge (1 mL)] Route: IVP; Site: [facility] right antecubital; 11:44 Drug: morphine 4 mg [morphine 4 mg/mL intravenous cartridge (1 mL)] Route: IVP; Site: [facility] right antecubital; Order Results: Lab Order: Basic Metabolic Profile; SPEC'M 07/17/16 09:16 Test: GLUCOSE, FASTING; Value: 84; Range: 83-110; Units: MG/DL; Status: F Test: BLOOD UREA NITROGEN; Value: 14; Range: 7-18; Units: MG/DL; Status: F Test: CREATININE FOR GFR; Value: 1.03; Range: 0.70-1.30; Units: MG/DL; Status: F Test: GLOMERULAR FILTRATION RATE; Value: > 60.0; Range: >35; Status: F Test: SODIUM LEVEL; Value: 142; Range: 136-145; Units: MEQ/L; Status: F Test: POTASSIUM SERUM; Value: 3.6; Range: 3.5-5.1; Units: MEQ/L; Status: F Test: CHLORIDE LEVEL; Value: 105; Range: 98-107; Units: MEQ/L; Status: F Test: CARBON DIOXIDE LEVEL; Value: 30; Range: 21-32; Units: MEQ/L; Status: F Test: ANION GAP; Value: 7; Range: 8-16; Abnormal: Below low normal; Units: MEQ/L; Status: F Test: CALCIUM LEVEL; Value: 8.3; Range: 8.8-10.2; Abnormal: Below low normal; Units: MG/DL; Status: F Test Note: ; Units are mL/min/1.73 m2 Chronic Kidney Disease Staging per NKF: Stage I & II GFR >=60 Normal to Mildly Decreased Stage III GFR 30-59 Moderately Decreased Stage IV GFR 15-29 Severely Decreased Stage V GFR <15 Very Little GFR Left ESRD GFR <[address] COLLECTIONS OFFICER Lab Order: CBC with Diff; SPEC'M 07/17/16 09:16 Test: WHITE BLOOD COUNT; Value: 8.2; Range: 4.0-10.0; Units: K/mm3; Status: F Test: RED BLOOD COUNT; Value: 4.36; Range: 4.30-6.10; Units: M/mm3; Status: F Test: HEMOGLOBIN; Value: 13.3; Range: 14.0-18.0; Abnormal: Below low normal; Units: g/dl; Status: F Test: HEMATOCRIT; Value: 40.2; Range: 42.0-52.0; Abnormal: Below low normal; Units: %; Status: F Test: MEAN CORPUSCULAR VOLUME; Value: 92.2; Range: 80.0-96.0; Units: fl; Status: F Test: MEAN CORPUSCULAR HEMOGLOBIN; Value: 30.6; Range: 27.0-33.0; Units: pg; Status: F Test: MEAN CORPUSCULAR HGB CONC; Value: 33.2; Range: 32.0-36.5; Units: g/dl; Status: F Test: RED CELL DISTRIBUTION WIDTH; Value: 13.6; Range: 11.5-14.5; Units: %; Status: F Test: PLATELET COUNT, AUTOMATED; Value: 269; Range: 150-450; Units: k/mm3; Status: F Test: NEUTROPHILS %; Value: 61.0; Range: 36.0-66.0; Units: %; Status: F Test: LYMPH %; Value: 17.1; Range: 24.0-44.0; Abnormal: Below low normal; Units: %; Status: F Test: MONO %; Value: 10.1; Range: 0.0-5.0; Abnormal: Above high normal; Units: %; Status: F Test: EOS %; Value: 5.1; Range: 0.0-3.0; Abnormal: Above high normal; Units: %; Status: F Test: BASO %; Value: 1.0; Range: 0.0-1.0; Units: %; Status: F Test: LARGE UNSTAINED CELL %; Value: 5.6; Range: 0.0-4.0; Abnormal: Above high normal; Units: %; Status: F Test: NEUTROPHILS #; Value: 5.0; Range: 1.8-7.7; Units: K/mm3; Status: F Test: LYMPH #; Value: 1.4; Range: 1.5-4.5; Abnormal: Below low normal; Units: K/mm3; Status: F Test: MONO #; Value: 0.8; Range: 0.0-0.8; Units: K/mm3; Status: F Test: EOS #; Value: 0.4; Range: 0.0-0.50; Units: K/mm3; Status: F Test: BASO #; Value: 0.1; Range: 0.0-0.2; Units: K/mm3; Status: F Test: LARGE UNSTAINED CELL #; Value: 0.5; Range: 0.0-0.4; Abnormal: Above high normal; Units: K/mm3; Status: F Lab Order: Partial Thromboplastin Time; [facility] 07/17/16 09:16 Test: PARTIAL THROMBOPLASTIN TIME; Value: 30.6; Range: 26.6-37.1; Units: SECONDS; Status: F Lab Order: Prothrombin Time Profile\E\INR; [facility] 07/17/16 09:16 Test: PROTHROMBIN TIME; Value: 14.2; Range: 12.3-14.5; Units: SECONDS; Status: F Test: INR; Value: 1.09; Status: F Test Note: ; THERAPUTIC HUMAN INR VALUES INDICATIONS NORMAL RANGES PROPHYLAXIS/TREATMENT OF: VENOUS THROMBOSIS 2.0-3.0 PULMONARY EMBOLISM 2.0-3.0 PREVENTION OF SYSTEMIC EMBOLISM FROM: TISSUE HEART VALVES 2.0-3.0 ACUTE MYOCARDIAL INFARCTION 2.0-3.0 VALVULAR HEART DISEASE 2.0-3.0 ATRIAL FIBRILLATION 2.0-3.0 MECHANICAL VALVES(HIGH RISK) 2.5-3.5 RECURRENT MYOCARDIAL INFARCTION 2.5-3.5 Lab Order: Type & Screen; [facility]07/17/16 09:16 Test: BLOOD TYPE; Value: O POS; Status: F Test: AB SCREEN (INDIRECT NABOR)GEL; Value: NEGATIVE; Status: F Radiology Order: CT Head Without Contrast Test: CT Head Without Contrast REASON FOR EXAMINATION: CVA >4.5hrs; CT HEAD WITHOUT CONTRAST:; ; HISTORY: Infarction.; ; An acute intraparenchymal hematoma is present in the right temporal lobe and; basal ganglia. The hematoma measures 5 cm in transverse x 3.7 cm in AP; dimensions. A small amount of surrounding edema is present. There is mass effect; with partial effacement of the overlying cortical sulci and body of the right; lateral and third ventricles with minimal midline shift to the left. A small; amount of intraventricular and subarachnoid hemorrhage are present. Areas of; decreased attenuation are present in the periventricular white matter. This; represents small vessel ischemic disease. The ventricular system and cortical; sulci are dilated consistent with moderate volume loss. There is no extracerebral; collection. The visualized sinuses are clear.; ; IMPRESSION:; ; 1. There is an acute intraparenchymal hematoma in the right temporal lobe; and basal ganglia with mass effect and minimal midline shift to the left.; ; 2. Small amount of intraventricular and subarachnoid hemorrhage.; ; 3. Small vessel ischemic disease.; ; 4. Moderate volume loss. The results were discussed with Dr. Harvey at 9:45; a.m. this date.; ; ; Signed by; Dc Enriquez MD 07/17/2016 10:16 A; Radiology Order: Chest, 1 View Test: Chest, 1 View REASON FOR EXAMINATION: CVA >4.5hrs; Chest one-view; ; HISTORY: Infarction; ; Comparison: 09/13 16; ; There is poor inspiratory effort. The lungs are clear. The heart is normal in; size. The pulmonary vasculature is normal in appearance.; ; Impression: No acute disease.; ; ; Signed by; Dc Enriquez MD 07/17/2016 09:58 A; Outcome: 10:10 Decision to Hospitalize by Provider. sd1 11:45 Discharge Assessment: Patient awake, alert and oriented x 3. No cognitive and/or hs1 functional deficits noted. Patient verbalized understanding of disposition instructions. patient administered narcotics - yes. Patient was admitted to the hospital or transferred to another facility. The following High Risk Discharge criteria are identified: None. Admitted to Med/Surg accompanied by nurse, accompanied by tech, family with patient, via stretcher, with chart. critical. CT Study completed. Property sent home with patient. 11:46 Patient left the ED. hs1 Signatures: Dispatcher [employer] EDMS Elisha Bishop MD MD sd1 Sheba Baird, Leg Breaker Unit lbd Nicole Stratton RN RN [facility] Yadira Griggs RN RN hs1 Paolo Forman jml1 Jimmie Cooper mm15 Corrections: (The following items were deleted from the chart) 09:21 08:59 Presenting complaint: mcp hs1 10:58 10:25 General: Pt is resting at present on way to CT scan. Respirations even and hs1 unlabored no other needs made known by family. . hs1 Chart Complete MTDD
--- NOTE | 2016-07-20 07:59 | EDDOCDS ---
Physician Documentation [facility] Name: Del Falcon Age: 86 yrs Sex: Male : 1930 Arrival Date: 07/17/2016 Time: 08:56 Bed 14 Private MD: Shaunna Santo E Disposition: 07/17/16 10:10 Hospitalization ordered by Abbey Juan for Inpatient Admission. Preliminary diagnosis is Intracerebral (nontraumatic) hemorrhage of - not . - Bed requested for 5 [place]. - Status is Inpatient Admission. hs1 - Condition is Stable. - Problem is new. - Symptoms are unchanged. Historical: - Home Meds: 1. minocycline miscellaneous 2. minocycline 100 mg Oral tab 1 tab daily 3. Cetaphil Moisturizing topical lotn twice a day 4. Atarax 10 mg Oral tab 10 mg four times a day 5. Prilosec 20 mg Oral cpDR 1 cap once daily 6. Rapaflo 8 mg oral cap 1 cap 7. finasteride 5 mg oral tab 1 tab once daily - PMHx: enlarged prostate; Hypertension; auto immune disease; Dementia; - PSHx: Cholecystectomy; Appendectomy; left knee operation; - Social history: Smoking status: unknown if patient ever smoked tobacco. No barriers to communication noted, Speaks appropriately for age. - Family history: Not pertinent. - : The pt / caregiver states he / she is not on anticoagulants. Home medication list is obtained from the facility SEP. - Exposure Risk Screening:: None identified. Vital Signs: 07/17 09:22 BP 245 / 162 (auto/); hs1 09:22 Pulse 60 MON; Pulse Ox 97% ; hs1 MDM: 09:02 ECG WITH READING ER PHYS+CARDIAG ordered. EDMS 09:04 Ditching Machine Engineer/Pulse Ox/q 15 min VS ordered. sd1 09:04 Accucheck ordered. sd1 09:04 IV Saline Lock ordered. sd1 09:04 Rhythm Strip to chart ordered. sd1 09:04 Basic Metabolic Profile Ordered. EDMS 09:04 CBC with Diff Ordered. EDMS 09:04 Partial Thromboplastin Time Ordered. EDMS 09:04 Prothrombin Time Profile\E\INR Ordered. EDMS 09:04 Type & Screen Ordered. EDMS 09:05 CT Head Without Contrast Ordered. EDMS 09:05 Chest, 1 View Ordered. EDMS 09:42 morphine 4 mg IVP every 15 minutes; Document pain score/vitals after each dose (Hold if sd1 SBP < 90mmHg) x2 ordered. 09:42 Ondansetron 4 mg IVP once ordered. sd1 09:44 BED REQUEST+ADM ordered. EDMS 10:14 Admission / Observation Status ordered. EDMS 10:17 PUREED DIET ordered. EDMS 10:37 Financial registration complete. mm15 10:42 [facility] Payment Agreement was scanned into [employer] and attached to record. mm15 11:33 morphine 4 mg IVP once ordered. hs1 Administered Medications: 09:58 Drug: morphine 4 mg [morphine 4 mg/mL intravenous cartridge (1 mL)] Route: IVP; Site: hs1 right antecubital; 09:58 Drug: Ondansetron 4 mg [ondansetron HCl 2 mg/mL intravenous solution (2 mL)] Route: hs1 IVP; Site: right antecubital; 10:40 Drug: morphine 4 mg [morphine 4 mg/mL intravenous cartridge (1 mL)] Route: IVP; Site: hs1 right antecubital; 11:44 Drug: morphine 4 mg [morphine 4 mg/mL intravenous cartridge (1 mL)] Route: IVP; Site: hs1 right antecubital; Signatures: Dispatcher [employer] EDElisha Saldaña MD MD sd1 Sheba Baird, Rn Palliative Unit lbd Yadira Griggs RN RN hs1 Jimmie Cooper mm15 The chart was reviewed and I authenticate all verbal orders and agree with the evaluation and treatment provided.Attachments: 10:42 [facility] Payment Agreement mm15 Chart Complete MTDD
--- NOTE | 2016-07-20 08:00 | EDDOCDS ---
Nurse's Notes [facility] Name: Del Falcon Age: 86 yrs Sex: Male : 1930 Arrival Date: 07/17/2016 Time: 08:56 Bed 14 Private MD: Shaunna Santo E Diagnosis: Intracerebral (nontraumatic) hemorrhage of -not Presentation: 07/17 08:59 Presenting complaint: EMS states: 7pm last known well. Pt was still sleeping when staff hs1 checked on him at 630 am. Family came to visit at that time and alerted staff members of left sided weakness. EMS report full left sided paralysis cant feel or move left side. Right side functioning. IV R AC 18 gauge. FS is 130 mg/dL. The last date and time the patient was known to be well was was at 19:00 on July 16, 2016. An acute neurological deficit is present. The charge nurse has been notified. The patient has been moved to a treatment area. The patients blood glucose was checked before arriving to the hospital and was found to be normal. Adult Sepsis Screening: Patient has new or worsening altered mentation (1 point). Patient's respiratory rate is less than 22. Systolic blood pressure is greater than 100. Patient has a qSOFA score of 0- Negative Sepsis Screen. Suicide/Homicide risk assessment- the patient denies having any suicidal and/or homicidal ideations and does not present with any other emotional, behavioral or mental health complaints. Status: Patient is not a financial report service sales agent or dependent. Transition of care: patient was not received from another setting of care. 08:59 Acuity: JASMYN Level 2 hs1 08:59 Method Of Arrival: Ambulance hs1 Triage Assessment: 09:22 The onset of the patients symptoms was at an unknown time. General: Appears in no hs1 apparent distress, Behavior is cooperative. Pain: Denies pain. Neurological: Level of Consciousness is awake, Oriented to Media Technician are weak on left Paralysis in left Reports unable to communicate at present. Pt does speak and is cordial with family members and staff. . Respiratory: Airway is patent Respiratory effort is even, unlabored. Derm: pock yang and itching noted to skin. Historical: - Home Meds: 1. minocycline miscellaneous 2. minocycline 100 mg Oral tab 1 tab daily 3. Cetaphil Moisturizing topical lotn twice a day 4. Atarax 10 mg Oral tab 10 mg four times a day 5. Prilosec 20 mg Oral cpDR 1 cap once daily 6. Rapaflo 8 mg oral cap 1 cap 7. finasteride 5 mg oral tab 1 tab once daily - PMHx: enlarged prostate; Hypertension; auto immune disease; Dementia; - PSHx: Cholecystectomy; Appendectomy; left knee operation; - Social history: Smoking status: unknown if patient ever smoked tobacco. No barriers to communication noted, Speaks appropriately for age. - Family history: Not pertinent. - : The pt / caregiver states he / she is not on anticoagulants. Home medication list is obtained from the facility SEP. - Exposure Risk Screening:: None identified. Screenin:31 Screening information is obtained from prior medical records. Fall risk: At risk due to hs1 age, gait disturbance, The following interventions are performed due to a positive Fall Risk Screen: Fall Risk is added to Special Handling on the patient Summary Screen. A Fall Risk Bracelet was applied to the patient. Side Rails are placed in the up position. A Call Zaragoza is given with instruction to call for help when getting out of bed. Assistance ADL's: Requires assistance with bathing, assistance is provided by residence staff. Abuse/DV Screen: The patient / caregiver reports he/she is: not in a situation that causes fear, pain or injury. Nutritional screening: On. Advance Directives: There is an active DNR order and the pt has a copy here at this time. home support is adequate. Assessment: 09:40 General: Appears in no apparent distress, Behavior is quiet, Family at bedside at hs1 present aware of plan of care for pt to have CT scan. No needs at this time per family. . 09:44 General: Pt is resting at present on way to CT scan. Respirations even and unlabored no hs1 other needs made known by family. . 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 Pt resting and appears quiet. Pt stating headache at times morphine administered per order. . 10:40 General: Pt has periods of restlessness per family at present and morphine administered hs1 for pain management. Pt respirations unlabored. Pt does have cough noted and strains when coughing and then returns to quiet resting periods. Family very attentive. . 11:32 Reassessment: Patient appears in no apparent distress at this time. patient is resting hs1 with family present. No needs noted. . 11:44 Adult Sepsis Screening: Accepted Exclusions- Patient is Comfort Measures Only. General: hs1 Appears in no apparent distress, Pt resting on stretcher with family present. Family very attentive. No needs noted at this time. Pt being administered medication prior to transfer to floor. . Vital Signs: 09:22 BP 245 / 162 (auto/); hs1 09:22 Pulse 60 MON; Pulse Ox 97% ; hs1 Vitals: 09:22 Glucose Measurement D-stick done by EMS. Log In Time N/A - ambulance arrival. hs1 ED Course: 08:58 Patient visited by Sheba Baird, Sawyer Helper. lbd 08:58 Shaunna Santo is Private Physician. lbd 08:58 Patient moved to Waiting lbd 08:58 Patient moved to 14 lbd 09:02 Triage Initiated hs1 09:03 Elisha Bishop MD is Attending Physician. sd1 09:03 Patient visited by Elisha Bishop MD. sd1 09:08 EKG done. (by ED staff). Reviewed by Elisha Bishop MD. jml1 09:09 Patient visited by Paolo Forman. jml1 09:18 Basic Metabolic Profile Sent. hs1 09:18 CBC with Diff Sent. hs1 09:18 Partial Thromboplastin Time Sent. hs1 09:19 Prothrombin Time Profile\E\INR Sent. hs1 09:19 Type & Screen Sent. hs1 09:49 Patient visited by Yadira Griggs RN. hs1 10:10 Abbey Juan is Hospitalizing Provider. sd1 10:27 Chest, 1 View Returned. EDMS 10:27 CT Head Without Contrast Returned. EDMS 10:42 [facility] Payment Agreement was scanned into [employer] and attached to record. mm15 11:45 The patient / caregiver is instructed regarding the plan of care and ED course. hs1 11:45 Maintain field IV. Gauge & site: 18 gauge in right AC. hs1 11:45 No procedures done that require assistance. hs1 Administered Medications: 09:58 Drug: morphine 4 mg [morphine 4 mg/mL intravenous cartridge (1 mL)] Route: IVP; Site: hs1 right antecubital; 09:58 Drug: Ondansetron 4 mg [ondansetron HCl 2 mg/mL intravenous solution (2 mL)] Route: hs1 IVP; Site: right antecubital; 10:40 Drug: morphine 4 mg [morphine 4 mg/mL intravenous cartridge (1 mL)] Route: IVP; Site: [facility] right antecubital; 11:44 Drug: morphine 4 mg [morphine 4 mg/mL intravenous cartridge (1 mL)] Route: IVP; Site: [facility] right antecubital; Order Results: Lab Order: Basic Metabolic Profile; SPEC'M 07/17/16 09:16 Test: GLUCOSE, FASTING; Value: 84; Range: 83-110; Units: MG/DL; Status: F Test: BLOOD UREA NITROGEN; Value: 14; Range: 7-18; Units: MG/DL; Status: F Test: CREATININE FOR GFR; Value: 1.03; Range: 0.70-1.30; Units: MG/DL; Status: F Test: GLOMERULAR FILTRATION RATE; Value: > 60.0; Range: >35; Status: F Test: SODIUM LEVEL; Value: 142; Range: 136-145; Units: MEQ/L; Status: F Test: POTASSIUM SERUM; Value: 3.6; Range: 3.5-5.1; Units: MEQ/L; Status: F Test: CHLORIDE LEVEL; Value: 105; Range: 98-107; Units: MEQ/L; Status: F Test: CARBON DIOXIDE LEVEL; Value: 30; Range: 21-32; Units: MEQ/L; Status: F Test: ANION GAP; Value: 7; Range: 8-16; Abnormal: Below low normal; Units: MEQ/L; Status: F Test: CALCIUM LEVEL; Value: 8.3; Range: 8.8-10.2; Abnormal: Below low normal; Units: MG/DL; Status: F Test Note: ; Units are mL/min/1.73 m2 Chronic Kidney Disease Staging per NKF: Stage I & II GFR >=60 Normal to Mildly Decreased Stage III GFR 30-59 Moderately Decreased Stage IV GFR 15-29 Severely Decreased Stage V GFR <15 Very Little GFR Left ESRD GFR <15 on CAREER SERVICES OFFICER Lab Order: CBC with Diff; SPEC'M 07/17/16 09:16 Test: WHITE BLOOD COUNT; Value: 8.2; Range: 4.0-10.0; Units: K/mm3; Status: F Test: RED BLOOD COUNT; Value: 4.36; Range: 4.30-6.10; Units: M/mm3; Status: F Test: HEMOGLOBIN; Value: 13.3; Range: 14.0-18.0; Abnormal: Below low normal; Units: g/dl; Status: F Test: HEMATOCRIT; Value: 40.2; Range: 42.0-52.0; Abnormal: Below low normal; Units: %; Status: F Test: MEAN CORPUSCULAR VOLUME; Value: 92.2; Range: 80.0-96.0; Units: fl; Status: F Test: MEAN CORPUSCULAR HEMOGLOBIN; Value: 30.6; Range: 27.0-33.0; Units: pg; Status: F Test: MEAN CORPUSCULAR HGB CONC; Value: 33.2; Range: 32.0-36.5; Units: g/dl; Status: F Test: RED CELL DISTRIBUTION WIDTH; Value: 13.6; Range: 11.5-14.5; Units: %; Status: F Test: PLATELET COUNT, AUTOMATED; Value: 269; Range: 150-450; Units: k/mm3; Status: F Test: NEUTROPHILS %; Value: 61.0; Range: 36.0-66.0; Units: %; Status: F Test: LYMPH %; Value: 17.1; Range: 24.0-44.0; Abnormal: Below low normal; Units: %; Status: F Test: MONO %; Value: 10.1; Range: 0.0-5.0; Abnormal: Above high normal; Units: %; Status: F Test: EOS %; Value: 5.1; Range: 0.0-3.0; Abnormal: Above high normal; Units: %; Status: F Test: BASO %; Value: 1.0; Range: 0.0-1.0; Units: %; Status: F Test: LARGE UNSTAINED CELL %; Value: 5.6; Range: 0.0-4.0; Abnormal: Above high normal; Units: %; Status: F Test: NEUTROPHILS #; Value: 5.0; Range: 1.8-7.7; Units: K/mm3; Status: F Test: LYMPH #; Value: 1.4; Range: 1.5-4.5; Abnormal: Below low normal; Units: K/mm3; Status: F Test: MONO #; Value: 0.8; Range: 0.0-0.8; Units: K/mm3; Status: F Test: EOS #; Value: 0.4; Range: 0.0-0.50; Units: K/mm3; Status: F Test: BASO #; Value: 0.1; Range: 0.0-0.2; Units: K/mm3; Status: F Test: LARGE UNSTAINED CELL #; Value: 0.5; Range: 0.0-0.4; Abnormal: Above high normal; Units: K/mm3; Status: F Lab Order: Partial Thromboplastin Time; [facility] 07/17/16 09:16 Test: PARTIAL THROMBOPLASTIN TIME; Value: 30.6; Range: 26.6-37.1; Units: SECONDS; Status: F Lab Order: Prothrombin Time Profile\E\INR; [facility] 07/17/16 09:16 Test: PROTHROMBIN TIME; Value: 14.2; Range: 12.3-14.5; Units: SECONDS; Status: F Test: INR; Value: 1.09; Status: F Test Note: ; THERAPUTIC HUMAN INR VALUES INDICATIONS NORMAL RANGES PROPHYLAXIS/TREATMENT OF: VENOUS THROMBOSIS 2.0-3.0 PULMONARY EMBOLISM 2.0-3.0 PREVENTION OF SYSTEMIC EMBOLISM FROM: TISSUE HEART VALVES 2.0-3.0 ACUTE MYOCARDIAL INFARCTION 2.0-3.0 VALVULAR HEART DISEASE 2.0-3.0 ATRIAL FIBRILLATION 2.0-3.0 MECHANICAL VALVES(HIGH RISK) 2.5-3.5 RECURRENT MYOCARDIAL INFARCTION 2.5-3.5 Lab Order: Type & Screen; [facility]07/17/16 09:16 Test: BLOOD TYPE; Value: O POS; Status: F Test: AB SCREEN (INDIRECT NABOR)GEL; Value: NEGATIVE; Status: F Radiology Order: CT Head Without Contrast Test: CT Head Without Contrast REASON FOR EXAMINATION: CVA >4.5hrs; CT HEAD WITHOUT CONTRAST:; ; HISTORY: Infarction.; ; An acute intraparenchymal hematoma is present in the right temporal lobe and; basal ganglia. The hematoma measures 5 cm in transverse x 3.7 cm in AP; dimensions. A small amount of surrounding edema is present. There is mass effect; with partial effacement of the overlying cortical sulci and body of the right; lateral and third ventricles with minimal midline shift to the left. A small; amount of intraventricular and subarachnoid hemorrhage are present. Areas of; decreased attenuation are present in the periventricular white matter. This; represents small vessel ischemic disease. The ventricular system and cortical; sulci are dilated consistent with moderate volume loss. There is no extracerebral; collection. The visualized sinuses are clear.; ; IMPRESSION:; ; 1. There is an acute intraparenchymal hematoma in the right temporal lobe; and basal ganglia with mass effect and minimal midline shift to the left.; ; 2. Small amount of intraventricular and subarachnoid hemorrhage.; ; 3. Small vessel ischemic disease.; ; 4. Moderate volume loss. The results were discussed with Dr. Harvey at 9:45; a.m. this date.; ; ; Signed by; Dc Enriquez MD 07/17/2016 10:16 A; Radiology Order: Chest, 1 View Test: Chest, 1 View REASON FOR EXAMINATION: CVA >4.5hrs; Chest one-view; ; HISTORY: Infarction; ; Comparison: 09/13 16; ; There is poor inspiratory effort. The lungs are clear. The heart is normal in; size. The pulmonary vasculature is normal in appearance.; ; Impression: No acute disease.; ; ; Signed by; Dc Enriquez MD 07/17/2016 09:58 A; Outcome: 10:10 Decision to Hospitalize by Provider. sd1 11:45 Discharge Assessment: Patient awake, alert and oriented x 3. No cognitive and/or hs1 functional deficits noted. Patient verbalized understanding of disposition instructions. patient administered narcotics - yes. Patient was admitted to the hospital or transferred to another facility. The following High Risk Discharge criteria are identified: None. Admitted to Med/Surg accompanied by nurse, accompanied by tech, family with patient, via stretcher, with chart. critical. CT Study completed. Property sent home with patient. 11:46 Patient left the ED. hs1 Signatures: Dispatcher [employer] EDMS Elisha Bishop MD MD sd1 Sheba Baird, Sawyer Helper Unit lbd Nicole Stratton RN RN [facility] Yadira Griggs RN RN hs1 Paolo Forman jml1 Jimmie Cooper mm15 Corrections: (The following items were deleted from the chart) 09:21 08:59 Presenting complaint: mcp hs1 10:58 10:25 General: Pt is resting at present on way to CT scan. Respirations even and hs1 unlabored no other needs made known by family. . hs1 Chart Complete MTDD
--- NOTE | 2016-07-20 08:00 | EDDOCDS ---
Physician Documentation [facility] Name: Del Falcon Age: 86 yrs Sex: Male : 1930 Arrival Date: 07/17/2016 Time: 08:56 Bed 14 Private MD: Shaunna Santo E Disposition: 07/17/16 10:10 Hospitalization ordered by Abbey Juan for Inpatient Admission. Preliminary diagnosis is Intracerebral (nontraumatic) hemorrhage of - not . - Bed requested for [address] [place]. - Status is Inpatient Admission. hs1 - Condition is Stable. - Problem is new. - Symptoms are unchanged. Historical: - Home Meds: 1. minocycline miscellaneous 2. minocycline 100 mg Oral tab 1 tab daily 3. Cetaphil Moisturizing topical lotn twice a day 4. Atarax 10 mg Oral tab 10 mg four times a day 5. Prilosec 20 mg Oral cpDR 1 cap once daily 6. Rapaflo 8 mg oral cap 1 cap 7. finasteride 5 mg oral tab 1 tab once daily - PMHx: enlarged prostate; Hypertension; auto immune disease; Dementia; - PSHx: Cholecystectomy; Appendectomy; left knee operation; - Social history: Smoking status: unknown if patient ever smoked tobacco. No barriers to communication noted, Speaks appropriately for age. - Family history: Not pertinent. - : The pt / caregiver states he / she is not on anticoagulants. Home medication list is obtained from the facility SEP. - Exposure Risk Screening:: None identified. Vital Signs: 07/17 09:22 BP 245 / 162 (auto/); hs1 09:22 Pulse 60 MON; Pulse Ox 97% ; hs1 MDM: 09:02 ECG WITH READING ER PHYS+CARDIAG ordered. EDMS 09:04 Infrastructure Engineer/Pulse Ox/q 15 min VS ordered. sd1 09:04 Accucheck ordered. sd1 09:04 IV Saline Lock ordered. sd1 09:04 Rhythm Strip to chart ordered. sd1 09:04 Basic Metabolic Profile Ordered. EDMS 09:04 CBC with Diff Ordered. EDMS 09:04 Partial Thromboplastin Time Ordered. EDMS 09:04 Prothrombin Time Profile\E\INR Ordered. EDMS 09:04 Type & Screen Ordered. EDMS 09:05 CT Head Without Contrast Ordered. EDMS 09:05 Chest, 1 View Ordered. EDMS 09:42 morphine 4 mg IVP every 15 minutes; Document pain score/vitals after each dose (Hold if sd1 SBP < 90mmHg) x2 ordered. 09:42 Ondansetron 4 mg IVP once ordered. sd1 09:44 BED REQUEST+ADM ordered. EDMS 10:14 Admission / Observation Status ordered. EDMS 10:17 PUREED DIET ordered. EDMS 10:37 Financial registration complete. mm15 10:42 [facility] Payment Agreement was scanned into [employer] and attached to record. mm15 11:33 morphine 4 mg IVP once ordered. hs1 Administered Medications: 09:58 Drug: morphine 4 mg [morphine 4 mg/mL intravenous cartridge (1 mL)] Route: IVP; Site: hs1 right antecubital; 09:58 Drug: Ondansetron 4 mg [ondansetron HCl 2 mg/mL intravenous solution (2 mL)] Route: hs1 IVP; Site: right antecubital; 10:40 Drug: morphine 4 mg [morphine 4 mg/mL intravenous cartridge (1 mL)] Route: IVP; Site: hs1 right antecubital; 11:44 Drug: morphine 4 mg [morphine 4 mg/mL intravenous cartridge (1 mL)] Route: IVP; Site: hs1 right antecubital; Signatures: Dispatcher [employer] EDElisha Saldaña MD MD sd1 Sheba Baird, Automotive Service Professional Unit lbd Yadira Griggs RN RN hs1 Jimmie Cooper mm15 The chart was reviewed and I authenticate all verbal orders and agree with the evaluation and treatment provided.Attachments: 10:42 [facility] Payment Agreement mm15 Chart Complete MTDD
--- NOTE | 2016-07-20 08:00 | EDDOCDS ---
Physician Documentation [facility] Name: Del Falcon Age: 86 yrs Sex: Male : 1930 Arrival Date: 07/17/2016 Time: 08:56 Bed 14 Private MD: Shaunna Santo E Disposition: 07/17/16 10:10 Hospitalization ordered by Abbey Juan for Inpatient Admission. Preliminary diagnosis is Intracerebral (nontraumatic) hemorrhage of - not . - Bed requested for 5 [place]. - Status is Inpatient Admission. hs1 - Condition is Stable. - Problem is new. - Symptoms are unchanged. Historical: - Home Meds: 1. minocycline miscellaneous 2. minocycline 100 mg Oral tab 1 tab daily 3. Cetaphil Moisturizing topical lotn twice a day 4. Atarax 10 mg Oral tab 10 mg four times a day 5. Prilosec 20 mg Oral cpDR 1 cap once daily 6. Rapaflo 8 mg oral cap 1 cap 7. finasteride 5 mg oral tab 1 tab once daily - PMHx: enlarged prostate; Hypertension; auto immune disease; Dementia; - PSHx: Cholecystectomy; Appendectomy; left knee operation; - Social history: Smoking status: unknown if patient ever smoked tobacco. No barriers to communication noted, Speaks appropriately for age. - Family history: Not pertinent. - : The pt / caregiver states he / she is not on anticoagulants. Home medication list is obtained from the facility SEP. - Exposure Risk Screening:: None identified. Vital Signs: 07/17 09:22 BP 245 / 162 (auto/); hs1 09:22 Pulse 60 MON; Pulse Ox 97% ; hs1 MDM: 09:02 ECG WITH READING ER PHYS+CARDIAG ordered. EDMS 09:04 Biological Science Technician/Pulse Ox/q 15 min VS ordered. sd1 09:04 Accucheck ordered. sd1 09:04 IV Saline Lock ordered. sd1 09:04 Rhythm Strip to chart ordered. sd1 09:04 Basic Metabolic Profile Ordered. EDMS 09:04 CBC with Diff Ordered. EDMS 09:04 Partial Thromboplastin Time Ordered. EDMS 09:04 Prothrombin Time Profile\E\INR Ordered. EDMS 09:04 Type & Screen Ordered. EDMS 09:05 CT Head Without Contrast Ordered. EDMS 09:05 Chest, 1 View Ordered. EDMS 09:42 morphine 4 mg IVP every 15 minutes; Document pain score/vitals after each dose (Hold if sd1 SBP < 90mmHg) x2 ordered. 09:42 Ondansetron 4 mg IVP once ordered. sd1 09:44 BED REQUEST+ADM ordered. EDMS 10:14 Admission / Observation Status ordered. EDMS 10:17 PUREED DIET ordered. EDMS 10:37 Financial registration complete. mm15 10:42 [facility] Payment Agreement was scanned into [employer] and attached to record. mm15 11:33 morphine 4 mg IVP once ordered. hs1 Administered Medications: 09:58 Drug: morphine 4 mg [morphine 4 mg/mL intravenous cartridge (1 mL)] Route: IVP; Site: hs1 right antecubital; 09:58 Drug: Ondansetron 4 mg [ondansetron HCl 2 mg/mL intravenous solution (2 mL)] Route: hs1 IVP; Site: right antecubital; 10:40 Drug: morphine 4 mg [morphine 4 mg/mL intravenous cartridge (1 mL)] Route: IVP; Site: hs1 right antecubital; 11:44 Drug: morphine 4 mg [morphine 4 mg/mL intravenous cartridge (1 mL)] Route: IVP; Site: hs1 right antecubital; Signatures: Dispatcher [employer] EDElisha Saldaña MD MD sd1 Sheba Baird, Disability Coordinator Unit lbd Yadira Griggs RN RN hs1 Jimmie Cooper mm15 The chart was reviewed and I authenticate all verbal orders and agree with the evaluation and treatment provided.Attachments: 10:42 [facility] Payment Agreement mm15 Chart Complete MTDD
[2016-07-20] MEDS ORDERED: GLYCOPYRROLATE INJ 0.2 MG/ML 2 ML VIAL IV ONE (08:45)
[2016-07-20] MEDS: MORPHINE 4 MG/ML 1ML SYRINGE IV PRN ×4 (08:59→16:05)
[2016-07-20] MEDS: POLYVINYL ALCOHOL OPHTH SOLN 15 ML(LIQUITEARS) OS SCH ×3 (09:00→17:00)
--- NOTE | 2016-07-20 19:19 | IPN ---
DATE: 07/20/2016 SUBJECTIVE: Patient seen and examined. No acute events overnight. Patient tachypneic this morning with terminal secretions. Comfort measures only. OBJECTIVE: GENERAL: Patient arousable, comfortable, in no acute distress. HEENT: Left-sided facial droop. Nonverbal at this point. CARDIAC: Irregular. Mildly tachycardic. PULMONARY: Upper airway sound. ABDOMEN: Soft. EXTREMITIES: No edema. ASSESSMENT AND PLAN: This is an 86-year-old male patient with underlying medical history of dementia, hypertension, benign prostatic hypertrophy (BPH), autoimmune dermatitis, from shelter facility admitted for intracranial hemorrhage with left-sided hemiparesis and cerebral edema. Currently comfort measures only. 1. Intracranial hemorrhage with left-sided hemiparesis, cerebral edema. 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 Not tolerating any oral. Currently on morphine drip with intravenous (IV) pushes for respiratory distress. Scopolamine patch. Ativan. Bowel regimen. Oxygen. Hospice consulted. No laboratories. Atropine as needed. Glycopyrrolate given today. 2. Benign prostatic hypertrophy (BPH). 3. Hypertension. 4. Cerebral edema. 5. Deep venous thrombosis (DVT) prophylaxis. 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 DISPOSITION: Currently the patient is comfort measures only.
--- NOTE | 2016-07-21 00:50 | DSES ---
DATE OF ADMISSION: 07/17/2016 DATE OF EXPIRATION/DISCHARGE: 07/20/2016 PRIMARY CARE PROVIDER: Shaunna Santo DO. FINAL DIAGNOSES: 1. Intracranial hemorrhage. 2. Left-sided hemiparesis with cerebral edema. 3. BPH. 4. Hypertension. 5. Comfort measures only. HISTORY OF PRESENT ILLNESS: This is an 86-year-old male patient with underlying medical history of hypertension, autoimmune dermatitis, BPH, dementia, from assisted facility, baseline ambulatory, able to dress himself, verbal, and last observed normal 7 p.m. the night before admission. Patient was found in the morning at 6:30 at assisted facility unable to move his left side with aphasia, unable to get dressed. Subsequently brought to the hospital, was minimally verbal. Seemed to report headache and aphasia. Further history limited secondary to patient's mental status. CT scan done at emergency department (ED) shows acute intraparenchymal hematoma in the right temporal lobe and basal ganglia with mass effect and surrounding edema, midline shift. Subsequent discussion was held with the family. Family would like the patient to be comfort measures, to be admitted for control of symptoms. HOSPITAL COURSE: Patient admitted to the hospital for comfort measures. Morphine, Ativan, scopolamine, glycopyrrolate were given during hospital course, as well as atropine for symptom control. Patient has not been tolerating any oral and morphine dose has been progressively increased for tachypnea and patient has , 07/20/2016, on comfort measures only in the hospital. Family is at the bedside.
== END 2016-07-20 17:00 | disposition expired | DRG 64 ==
LOC: M ED 08:56 → M ED INP 10:12 → M MS5PR 11:55 → M ED INP 12:32 → M MS5PR 12:40
PROVIDERS: ADMIT Hospitalist; ATTEND Hospitalist
DX: I61.6 Nontraumatic intracerebral hemorrhage, multiple localized (principal); G93.6 Cerebral edema; G81.94 Hemiplegia, unspecified affecting left nondominant side; N40.0 Benign prostatic hyperplasia without lower urinary tract symptoms; I10 Essential (primary) hypertension; Z51.5 Encounter for palliative care; L30.8 Other specified dermatitis; F03.90 Unspecified dementia, unspecified severity, without behavioral disturbance, psychotic disturbance, mood disturbance, and anxiety